=== PATIENT | male | born 1940 | race Caucasian/White ===

== ENCOUNTER 2024-05-24 20:07 | Inpatient (IN) | payer MEDICARE, BC, SELFPAY ==
[2024-05-24 15:47] VITALS: BP 130/72
[2024-05-24 16:10] LABS: % Basophils 0.7 % (0-2); % Eosinophils 5.2 % (0-6); % Immature Granulocytes 0.7 % (0-0.5); % Lymphocytes 12.4 % (20.5-51.1); Absolute Basophils 0.1 10^3/uL (0-0.2); Absolute Eosinophils 0.7 10^3/uL (0-0.7); Absolute Immature Granulocytes 0.1 10^3/uL (0-0.05); Absolute Lymphocytes 1.7 10^3/uL (1.2-3.4); Absolute Monocytes 1.1 10^3/uL (0.1-0.6); Hematocrit 33.4 % (39.0-52.0); Hemoglobin 10.9 g/dL (13.0-18.0); Mean Corp Hgb Conc. 32.6 g/dL (33.0-37.0); Mean Corpuscular Hgb 29.9 pg (27.0-31.0); Mean Corpuscular Volume 91.5 fL (80.0-94.0); Nucleated Red Blood Cells % 0 % (-); Platelet Count 245 10^3/uL (130-400); Red Blood Cell Count 3.65 10^6/uL (4.70-6.10); Red Cell Dist. Width 14.6 % (11.5-14.5); White Blood Cell Count 13.8 10^3/uL (4.8-10.8)
[2024-05-24 16:27] LABS: ALT (SGPT) 29 U/L (0-50); AST (SGOT) 37 U/L (17-59); Albumin 4.3 g/dl (3.5-5.0); Alkaline Phosphatase 66 U/L (38-126); Blood Urea Nitrogen 47 mg/dl (9-20); Calcium 9.8 mg/dl (8.4-10.2); Carbon Dioxide 26 mmol/L (22-30); Chloride 102 mmol/L (98-107); Glucose 118 mg/dl (70-99); Potassium 3.3 mmol/L (3.5-5.1); Sodium 140 mmol/L (135-145); Total Bilirubin 0.9 mg/dl (0.2-1.3); Total Protein 6.4 g/dl (6.3-8.2); eGFR 20.43
[2024-05-24 16:38] LABS: NT-proBNP 4010 pg/ml; Troponin I 0.015 ng/ml
[2024-05-24 18:16] VITALS: BP 159/85
--- NOTE | 2024-05-24 18:24 | ED.GENMED ---
History of Present Illness
General
Chief Complaint: Breathing Problem
Time Seen by Provider: 05/24/24 18:13
History of Present Illness
History of Present Illness:
84-year-old male presents to the emergency department for evaluation of exertional shortness of breath and recent 8 pound weight gain over the past 2 weeks. No chest pain with exertion. No prior cardiac history. Increased lower leg edema. Denies
any orthopnea. No fevers, chills, sweats, or coughing
Past History
Past History
ED Past Medical History: HTN and Hypercholesterolemia
ED Past Surgical History: Cholecystectomy and Urological
Social History
Tobacco: Non-smoker
Alcohol: Occasional
Drug: None
Personal:
Living: with family
Employment: Retired
Family History
Family History: Hypertension
Review of Systems
Review of Systems
Allergies reviewed?: Yes
All Other Systems: ROS reviewed and negative except as documented in HPI and ROS
Phy Exam
Physical Exam
Physical Exam:
GEN: Well appearing, NAD, WDWN
HEENT: Oral mucosa moist, no scleral icterus
Cardiac: Regular rate, irregular
Lung: No respiratory distress, no tachypnea, fine crackles heard at the bases
MSK: No gross deformity or injuries, 3+ pitting edema bilateral lower extremity
Skin: Good color, no pallor or jaundice, no rashes
Neuro: AO x3, moves all extremities freely
Psych: Calm, cooperative
Scores
Heart Failure Risk
Heart Failure Risk Score: Yes
History of Stroke or TIA: No
History of intubation for respiratory distress: No
Heart rate on ED arrival >/= 110: No
SaO2 <90% on arrival on room air: No
HR >/=110 during 3min walk test (or too ill to perform test): No
ECG has acute ischemic changes: No
Urea >/=12mmol/L (BUN 33.6mg/dL): Yes
Serum CO2>/=35mmol/L: No
Troponin I or T elevated to DC Level (0.4mg/dL): No
NT-proBNP >/=5,000ng/L (5,000pg/ml): No
HF Risk Score: 1
Admission Status: MEDIUM RISK 5.1% Consider observation or discharge to home with homecare & f/u visit to PCP/[facility], or SNF for treatment
Course
Orders/Labs/Results
Orders:
Orders
05/24/24 Dinner
Cholesterol Lowering
At Your Request: Limited Participation
Fluid Restriction: 1440 mL/day (48 oz)
Cholesterol Lowering: Sodium, 2 Gram
05/24/24 15:37
Electrocardiogram (*1) Urgent
Reason for Study: Shortness of Breath
05/24/24 15:38
EKG- Treatment ONCE
05/24/24 15:51
Electrocardiogram (*1) Urgent
Reason for Study: Shortness of Breath
EKG- Treatment ONCE
CR Chest - 2 Views Urgent
Comment:
Reason For Exam: SOB
05/24/24 15:55
Complete Blood Count/With Diff Urgent
Comprehensive Metabolic Panel Urgent
Ferritin Urgent
Comment: ADD ON
Folate Urgent
Comment: ADD ON
Iron Urgent
Comment: ADD ON
NT-proBNP Urgent
TSH Reflex To Free T4 Urgent
Comment: ADDON
Total Iron Binding Urgent
Comment: ADD ON
Troponin I Urgent
Vitamin B12 Urgent
Comment: ADD ON
05/24/24 18:23
Furosemide [Lasix] 20 mg IV NOW STA
Potassium Chloride [KCl] 40 meq PO NOW STA
Nursing to Place Non Medication Order As Directed
Physician Order: PTT 6 hours after initial start of Heparin infusion
Above order entered?: Yes
05/24/24 18:27
Heparin 4,000 units IV NOW STA
Nursing to Place Non Medication Order As Directed
Physician Order: PTT 6 hours after initial start of Heparin infusion
Above order entered?: Yes
05/24/24 18:29
PTT Urgent
Comment: Obtain baseline before beginning heparin infusion if not already collected
05/24/24 18:30
Heparin 03937 Units/250 ml 25,000 units in 250 ml IV PER PROTOCOL
Weight to be used for heparin protocol in kilograms (kg):: 97
Protocol:: Cardiac Tx/Acute Coronary
PTT Goal Range to be used:: PTT 73 to 111 seconds
Order type:: Initial
INITIAL Infusion Dose (UNITS/KG/hr) & then follow protocol:: 12 units/kg/hr
Infusion Dose in UNITS/hr & then follow protocol (UNITS/hr):: 1,000
INFUSION RATE in mL/hr & then follow protocol (mL/hr):: 10
PTT less than or equal to 64 seconds:: Increase rate by 200 units/hr (+ 2 mL/hr)
PTT 64.1 to 72.9 seconds:: Increase rate by 100 units/hr (+ 1 mL/hr)
PTT 73 to 111 seconds:: Target Range. No change in rate.
PTT 111.1 to 130.9 seconds:: Decrease rate by 100 units/hr (- 1 mL/hr)
PTT 131 to 199.9 seconds:: HOLD for 1 hr. Then decrease rate by 200 units/hr (- 2 mL/hr)
PTT greater than or equal to 200 seconds:: HOLD for 2 hrs & Notify Provider. Then decrease by 200 units/hr (-
2 mL/hr)
Lab follow-up:: Each change, PTT q6h until 2 consecutive are therapeutic. Then PTT
daily.
05/24/24 18:35
Potassium Chloride [KCl] 20 meq 0.9% Sodium Chloride 150 ml [Nss] 150 ml IV NOW
05/24/24 19:23
Add On- LAB Urgent
Tests Added?: tsh with free t4 reflex
05/24/24 19:45
Admit/Transfer Patient As Directed
Co-Sign Provider:
Level of Care: Inpatient admission
Assign to:: Telemetry
Physician / Group: jimmy vu
Diagnosis: new onset afib, acute Chf, hypoK, anemia
Reason for Telemetry: Arrhythmia
Date to Stop Telemetry: 05/27/24
Time to Stop Telemetry: 11:00
Reason for Hospitalization: new onset afib, acute Chf, hypoK, anemia
Expected length of stay greater than two midnights?: Yes
ELOS- Estimated Length of Stay in days: 4
I certify the patient meets the requirements for IP care: Yes
Code Status As Directed
Resuscitation Status: Do not resuscitate
Reached after discussion with pt or family/Healthcare POA: Yes
Based on pt advanced directive or healthcare POA form: Yes
Decision communicated with: per pt
05/24/24 19:46
DNR Bracelet Application ONCE
05/24/24 19:49
PRN Pain Medication Management As Directed
May give lesser potent ordered pain med per pt: Yes
preference::
Protocol:: Medication orders for pain may be administered in a
manner that supports deferring to patient preference
when the pt is:
- Requesting an ordered lesser potent pain medication.
Least to most potent pain medications are defined
as: acetaminophen < NSAID < tramadol < opioids
(morphine, oxycodone, hydromorphone).
- Requesting a lesser dose of the same medication IF
ORDERED.
- Requesting a less intrusive route of administration
if both routes are prescribed by the provider (PO <
IV).
05/24/24 19:53
Add On- LAB Urgent
Tests Added?: iron, tibc, ferritin, b12 folate
05/24/24 20:04
Consult Cardiology [CARDIOLOGY CONSULT] Urgent
Consulting Provider: Baldev Mtz
Was physician already notified: Yes
Reason for consult: new chf new afib
05/24/24 22:00
Acetaminophen [Tylenol] 650 mg PO Q4HPRN PRN
Atorvastatin [Lipitor] 10 mg PO HS
Carvedilol [Coreg] 25 mg PO BID
05/24/24 22:00
Heparin Protocol- PTT Orders As Directed
PTT per Heparin protocol: -Obtain CBC and baseline PTT - if not already collected.
-Obtain PTT 6 hours from start of infusion. Then, every 6 hours until 2 consecutive
PTT's are therapeutic. Then, PTT Daily.
-With each rate change, obtain PTT every 6 hours until 2 consecutive PTT's are
therapeutic. Then, PTT Daily.
Activity As Directed
Activity Level: As Tolerated
Intake/ Output As Directed
Frequency: Per unit guidelines
Notify MD As Directed
Notify physician if: PTT is greater than or equal to 200.
Vital Signs As Directed
Frequency: Per unit guidelines
Weight As Directed
Frequency: Daily
Pulse Ox/spot Check [RESP] Routine
Quantity: 1
Ot Eval And Treat Routine
Pt Eval And Treat Routine
Activity Level: As Tolerated
05/25/24 00:45
PTT Urgent
05/25/24 06:00
EKG [Electrocardiogram (*1)] IN AM
Reason for Study: Abnormal EKG
Echo 2D MMode Color/Doppler IN AM
Reason for Study: afib
Cardiovascular Evaluation IN AM
Complete Blood Count/With Diff IN AM
Comprehensive Metabolic Panel IN AM
TSH Reflex To Free T4 IN AM
05/25/24 08:00
Allopurinol [Zyloprim] 300 mg PO DAILY
05/26/24 06:00
Complete Blood Count/No Diff Q2D
Comment: notify provider: Platelet count < 130,000 or decrease by 50% from baseline
Complete Blood Count/With Diff IN AM
Comprehensive Metabolic Panel IN AM
05/27/24 06:00
Complete Blood Count/With Diff IN AM
Comprehensive Metabolic Panel IN AM
05/27/24 11:00
DC Protocol for Telemetry ONCE
05/28/24 06:00
Complete Blood Count/No Diff Q2D
Comment: notify provider: Platelet count < 130,000 or decrease by 50% from baseline
Complete Blood Count/With Diff IN AM
Comprehensive Metabolic Panel IN AM
05/30/24 06:00
Complete Blood Count/No Diff Q2D
Comment: notify provider: Platelet count < 130,000 or decrease by 50% from baseline
06/01/24 06:00
Complete Blood Count/No Diff Q2D
Comment: notify provider: Platelet count < 130,000 or decrease by 50% from baseline
06/03/24 06:00
Complete Blood Count/No Diff Q2D
Comment: notify provider: Platelet count < 130,000 or decrease by 50% from baseline
06/05/24 06:00
Complete Blood Count/No Diff Q2D
Comment: notify provider: Platelet count < 130,000 or decrease by 50% from baseline
06/07/24 06:00
Complete Blood Count/No Diff Q2D
Comment: notify provider: Platelet count < 130,000 or decrease by 50% from baseline
06/09/24 06:00
Complete Blood Count/No Diff Q2D
Comment: notify provider: Platelet count < 130,000 or decrease by 50% from baseline
Abnormal Lab Results
05/24/24
15:55
WBC 13.8 H 10^3/uL
(4.8-10.8)
RBC 3.65 L 10^6/uL
(4.70-6.10)
Hgb 10.9 L g/dL
(13.0-18.0)
Hct 33.4 L %
(39.0-52.0)
MCHC 32.6 L g/dL
(33.0-37.0)
RDW 14.6 H %
(11.5-14.5)
MPV 11.0 H fL
(7.4-10.4)
Abs Immat Gran (auto) 0.1 H 10^3/uL
(0-0.05)
Absolute Neuts (auto) 10.0 H 10^3/uL
(1.4-6.5)
Absolute Monos (auto) 1.1 H 10^3/uL
(0.1-0.6)
Immature Gran % 0.7 H %
(0-0.5)
Lymphocytes % 12.4 L %
(20.5-51.1)
Potassium 3.3 L mmol/L
(3.5-5.1)
BUN 47 H mg/dl
(9-20)
Creatinine 2.9 H mg/dL
(0.7-1.3)
Glucose 118 H mg/dl
(70-99)
% Saturation 17 L %
(20-50)
Folate > 20.0 H ng/ml
(2.76-20)
05/24/24 15:55
05/24/24 15:55
Vital Signs
Initial and Last Documented VS:
Initial Vital Signs
Temp Pulse Resp BP Pulse Ox
97.5 F 96 18 130/72 95
05/24/24 15:47 05/24/24 15:47 05/24/24 15:47 05/24/24 15:47 05/24/24 15:47
Last Documented Vital Signs
Temp Pulse Resp BP Pulse Ox
98.0 F 91 16 140/73 97
05/24/24 23:39 05/24/24 23:39 05/24/24 23:39 05/24/24 23:39 05/24/24 23:39
MDM/Problems Addressed
MDM/Problems Addressed:
Patient with new onset CHF which may be in part due to newly identified atrial fibrillation. He is certainly not a cardioversion candidate and is rate controlled at this time. Placed on heparin, diuresis initiated and potassium repletion given IV
and orally. Will admit to the hospitalist service
Comment
Comment:
EKG independently interpreted by me shows atrial fibrillation at a rate of [address] depressions
*Critical Care Note
Total Time (30-74mins, 75-104mins- exclusive of procedures): Not Applicable
ED Attending Note
-
Portions of this chart may have been created with voice recognition software.� Occasional wrong word or��sound alike� substitutions may have occurred due to the inherent limitations of voice recognition software.
Discharge Plan
Departure
Patient Disposition: Admit
Date of Disposition: 05/24/24
Time of Disposition: 18:26
Admit to: Telemetry
Presentation/result/management discussed w/ accepting MD/DO: Hospitalist
Discharge Problem:
Atrial fibrillation, new onset, New onset of congestive heart failure
Interventions
Interventions:
*Risk Screen - Suicide Last Done: 05/24/24 18:30
*General Assessment Last Done: 05/24/24 15:47
*Neglect/Abuse Screening Last Done: 05/24/24 18:30
*ED COVID-19 Vaccine History Last Done: 05/24/24 18:30
*Nursing Disposition Last Done: 05/24/24 22:23
ED- Cardiac Assessment Last Done: 05/24/24 18:46
ED- Pulmonary Assessment Last Done: 05/24/24 18:46
Discharge Date and Time
Discharge Date/Time: 05/24/24 22:24
[2024-05-24 18:26] VITALS: BMI 29.8
[2024-05-24] MEDS: LASIX 20 MG IV (18:36)
[2024-05-24] MEDS: KCL 40 MEQ PO (18:38)
[2024-05-24] MEDS: HEPARIN 4000 UNITS IV (18:38)
[2024-05-24] MEDS: HEPARIN 25000 UNITS/250 ML IV (18:42)
[2024-05-24 18:54] LABS: APTT 31.6 Sec (23.4-35.0)
[2024-05-24 19:00] VITALS: BP 141/62
--- NOTE | 2024-05-24 19:01 | HPS.HSE ---
Addendum entered and electronically signed by ENRICO Boateng 05/24/24 22:40:
Gout
Due to pt's CKD4 Gout proph Allopurinol based on pt's CRCL should be 100 mg daily not 300 mg daily
tHis was discussed with Pharmacy
Addendum entered and electronically signed by Adilson Herndon DO 05/24/24 20:56:
Patient seen and examined independently. Agree with findings and plan as set forth by ENRICO Boateng.
Patient is an 84y M with PMH significant for hypertension and CKD who presents to ED complaining of SOB, weight gain and edema. Patient has no prior history of known heart disease. He states that he developed some chest tightness and shortness
of breath while shoveling snow a few weeks ago. Since that time, he has experienced increased SNYDER, edema in the legs - gradually increasing to the thighs - and 8 pound weight gain.
He presents to the ED for further evaluation and treatment.
No fever / chills, cough, etc. No chest pain at present.
Ass:
Acute HF - Unknown Type
Atrial Fibrillation - New Onset
MAITE on CKD
Hypokalemia
Anemia of CKD
Benign Hypertension
Gout
Chronic Leukocytosis
Plan:
Admit for further evaluation and treatment.
Concern for new ischemia several weeks ago and now with new cardiac dysfunction.
Monitor on telemetry - A-Fib currently rate-controlled.
Continue current carvedilol.
IV Heparin infusion for stroke risk reduction.
IV Lasix and follow I/Os, daily weights, etc.
Follow for changes / improvement in renal function with diuresis.
Follow potassium and provide additional replacement if needed.
Discontinue amlodipine and HCT for now.
Echo.
Cardiology evaluation for additional recommendations.
Follow for clinical improvement.
Original Note:
Family Physician
-
Family Physician: Nicanor Linton
Chief Complaint
-
Leg edema weight gain, SNYDER
History of Present Illness
84-year-old male complaining of dyspnea on exertion with 8 pound weight gain over the past 2 weeks and lower extremity edema. He reports noticing dyspnea on exertion after shoveling snow a few weeks ago. He denies fever, chills, sore throat, chest
pain, palpitations, abdominal pain, nausea, vomiting, diarrhea, urinary symptoms. He has past medical history of hypertension, hyperlipidemia, rib fracture/pleural effusion/chest tube, colon polyps with tubular adenoma, chronic renal failure,
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
Medical History
Past Medical History
Past Medical History: Reports Other
Additional Past Medical History:
hypertension
hyperlipidemia
rib fracture/pleural effusion/chest tube
colon polyps with tubular adenoma
chronic renal failure
prostate cancer status post prostatectomy 1994
arthritis
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
gout
impaired vision
CKD 4A
chronic leukocytosis.
Past Surgical History: Reports Other
Additional Past Surgical History:
rib fracture/pleural effusion/chest tube
prostate cancer status post prostatectomy 1994
Left knee replacement
Social History
Tobacco: Non-smoker
Alcohol: Occasional (every few months)
Drug: None
Personal:
Living: With Family ()
Employment: Retired
Family History
Family History: Other (Mother CVA age 83 Father CVA age 66)
Allergies / Home Medications
Allergies reflects when Allergies were last updated in [facility].
Home Medications with original date entered in [facility]
Allergy/Medication List:
Allergies
Allergy/AdvReac Type Severity Reaction Status Date / Time
Penicillins Allergy Rash,fever Verified 05/24/24 15:47
Sulfa (Sulfonamide Allergy Rash,fever Verified 05/24/24 15:47
Antibiotics)
[Sulfa (Sulfonamides)]
Home Medications
atorvastatin 10 mg tablet 10 mg PO HS 04/07/15
carvedilol 25 mg tablet (Coreg) 25 mg PO BID 04/07/15
aspirin 325 mg tablet 325 mg PO DAILY 03/31/16
amlodipine 10 mg tablet (Norvasc) 10 mg PO DAILY 05/16/17
hydrochlorothiazide 25 mg tablet 25 mg PO DAILY 05/16/17
zuieftpn-cee-wpiet acid 0.4 mg-lycopene 300 mcg-lutein 250 mcg tablet (Centrum Silver) 1 ea PO DAILY 05/16/17
omega 3-lmp-nzs-fish oil 300 mg-1,000 mg capsule (Fish Oil) 1 ea PO BID 05/16/17
allopurinol 300 mg tablet 300 mg PO DAILY 06/09/17
acetaminophen 325 mg tablet (Tylenol) 650 mg PO Q6HPRN PRN mild pain 05/24/24
Review of Systems
-
History Source: Patient
A 12 point ROS was completed and negative except as noted: Yes
Constitutional: Reports Weight Gain; Denies Fever, Fatigue or Chills
EENT: Denies Sore Throat or Runny Nose
Respiratory: Reports Trouble Breathing (snyder when shoveling snow weeks ago); Denies Cough
Cardiac: Denies Chest Pain, Diaphoresis, Palpitations or Syncope
Abdomen/GI: Denies Abdominal Pain, Nausea, Vomiting, Diarrhea, Constipated, Bloody Stools or Black Stools
: Denies Dysuria, Frequency, Flank Pain, Incontinence, Difficulty Voiding or Urgency
Musculoskeletal: Reports Edema (+ legs to thighs ); Denies Joint Pain
Skin: Denies Itching or Rash
Neurological: Denies Dizzy, Headache or Weakness
Endocrine: Reports No Symptoms
Hematologic/Lymphatic: Reports No Symptoms
Psych: Reports Calm
Physical Exam
Vital Signs
Vital Signs
Temp Pulse Resp BP Pulse Ox
97.5 F 67 16 159/85 93
05/24/24 15:47 05/24/24 18:36 05/24/24 18:17 05/24/24 18:36 05/24/24 18:17
Physical Exam
General: Comfortable and Conversant; No Pain, Fever or Chills
HEENT: NormoCephalic, Anicteric, Moist mucous membranes, PERRLA, Quintana Conjunctivae and No Ptosis
Respiratory: Clear; No Wheezes, Rales or Rhonchi
Cardiac: S1/S2, Irregular Rhythm (afib controlled rate 63) and Peripheral Edema (+2 lower legs to upper thighs); No Murmur, Rub or Gallop
Breast: Deferred by me
GI: Soft, Non Tender, Non Distended, Normal Bowel Sounds and No Hepatosplenomegaly
Rectal: Deferred by Provider
Genito-urinary: Deferred by me
Musculoskeletal: No Clubbing, No Cyanosis, Edema, Left Lower Extremity (+2 lower legs to thighs) and Edema, Right Lower Extremity (+2 lower legs to thighs); No Edema, Left Upper Extremity or Edema, Right Upper Extremity
Skin: Warm and Dry; No Rash
Neuro: AO x 3, No Motor Deficits, Nonfocal/grossly intact, Cranial Nerves Intact and No Sensory Deficits; No Slurred Speech, Facial Droop, Tremors or Sedated
Psych: Calm
Laboratory Results
-
05/24/24 15:55
05/24/24 15:55
Laboratory Results
Total Bilirubin 0.9 mg/dl (0.2-1.3) 05/24/24 15:55
AST 37 U/L (17-59) 05/24/24 15:55
ALT 29 U/L (0-50) 05/24/24 15:55
Alkaline Phosphatase 66 U/L (38-126) 05/24/24 15:55
Troponin I 0.015 ng/ml 05/24/24 15:55
Data Reviewed
-
Lab Data: Labs Reviewed by me
Impression/Plan
-
Impression/plan:
Admit to TELE
#New onset A-fib
Currently rate controlled with patient's carvedilol 25 mg p.o. twice daily
-Heparin drip
-2D echo
-Consult [facility] cardiology
03/31/2016: EF 55 to 60%, mild TR normal LVS LVSF
#Acute CHF likely diastolic
I/O, daily weight
BNP 4010
Lasix 20 mg IV now
-Start Lasix 40 mg Bid
EKG A-fib heart rate 78 bpm, QTc [address] abnormality lateral leads
CXR:Right perihilar airspace opacity most suspicious for pneumonia. Recommend radiographic follow-up to resolution.
Trace bilateral pleural fluid. Slight prominence of the pulmonary vascular markings. No pneumothorax. The cardiac silhouette is enlarged. Chronic degenerative changes of the spine.
#Acute hypokalemia
K3.3
-KCl 40 mEq p.o. given in the ER, along with IV K rider 20 mEq
-Will check BMP in a.m. hold on any further potassium supplementation
#CKD stage Humza
Creat 2.9, prior baseline appears 1.4-1.8 ()
-Follow BMP
#Acute on chronic leukocytosis
WBC 13.8 appears less than baseline baseline appears 16-20 since 2015
-Follow CBC
#Chronic anemia normocytic
Hgb 10.9 prior 12.8 03/24/2020
-Check iron panel, B12, folate
#HTN�benign
-Hold HCTZ 25 mg daily, amlodipine 10 mg daily decrease aspirin to 81 mg daily
#HLD
-Check lipid profile
-Continue atorvastatin 10 mg at bedtime
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
-Check TSH with free T4 reflex
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
#Gout
-Continue allopurinol 300 mg daily
#Prostate cancer status post radical prostatectomy 1994
Other PMH:
Rib fracture/pleural effusion/chest tube
colon polyps with tubular adenoma
DVT prophylaxis
IV heparin drip
DNR per patient
[2024-05-24] MEDS: KCL 160 MEQ IV (19:21)
[2024-05-24 20:00] VITALS: BP 145/70
[2024-05-24 20:09] LABS: Iron 56 ug/dl (49-181)
[2024-05-24 20:19] LABS: Percent Saturation 17 % (20-50); Total Iron Binding Capacity 316 ug/dl (261-462)
[2024-05-24 20:46] LABS: Ferritin 33.4 ng/ml (17.9-464.0)
[2024-05-24 21:18] LABS: Folate > 20.0 ng/ml (2.76-20)
[2024-05-24 22:11] VITALS: BP 141/70; BMI 33.5
[2024-05-24] MEDS: LIPITOR 10 MG PO (23:02)
[2024-05-24] MEDS: COREG 25 MG PO (23:02)
[2024-05-24 23:18] VITALS: BMI 33.5
[2024-05-24 23:39] VITALS: BP 140/73
[2024-05-25] VITALS (7 sets, daily range): BP systolic 112–144; BP diastolic 54–69; PULSE 73–81; O2SAT 90–91; BMI 33.0
--- NOTE | 2024-05-25 00:28 | PTCARENOTE ---
Receive pt from ER. Pt alert oriented X3, calm and pleasant, in no resp distress. Pt denies chest pain, but mild dyspnea on exertion. Pt assist X1 to his bed, steady on his feet. Pt oriented to the room, call dueñas within reach. Pt on Afib on
telemonitor. VSS (T=98, HR=94, RR=20, MO=051/70, SpO2=93% on RA). CHF and Afib packets provided. Plan of care reviewed with the pt. Pt on Hep gtt. Will continue to monitor the pt.
[2024-05-25 01:43] LABS: APTT 53.2 Sec (23.4-35.0)
[2024-05-25 04:07] LABS: Vitamin B12 802 pg/ml (239-931)
[2024-05-25 08:33] LABS: % Eosinophils 4.6 % (0-6); % Immature Granulocytes 0.8 % (0-0.5); % Monocytes 7.6 % (1.7-9.3); Absolute Basophils 0.1 10^3/uL (0-0.2); Absolute Eosinophils 0.6 10^3/uL (0-0.7); Absolute Immature Granulocytes 0.1 10^3/uL (0-0.05); Absolute Lymphocytes 1.7 10^3/uL (1.2-3.4); Absolute Monocytes 0.9 10^3/uL (0.1-0.6); Absolute Neutrophils 8.7 10^3/uL (1.4-6.5); Hematocrit 30.5 % (39.0-52.0); Hemoglobin 10.1 g/dL (13.0-18.0); Mean Corp Hgb Conc. 33.1 g/dL (33.0-37.0); Mean Corpuscular Hgb 30.1 pg (27.0-31.0); Mean Corpuscular Volume 90.8 fL (80.0-94.0); Mean Platelet Volume 11.1 fL (7.4-10.4); Nucleated Red Blood Cells % 0 % (-); Platelet Count 219 10^3/uL (130-400); Red Blood Cell Count 3.36 10^6/uL (4.70-6.10); Red Cell Dist. Width 14.6 % (11.5-14.5); White Blood Cell Count 12.1 10^3/uL (4.8-10.8)
[2024-05-25 08:41] LABS: APTT 62.5 Sec (23.4-35.0)
[2024-05-25 08:51] LABS: ALT (SGPT) 26 U/L (0-50); AST (SGOT) 35 U/L (17-59); Albumin 3.9 g/dl (3.5-5.0); Alkaline Phosphatase 69 U/L (38-126); Blood Urea Nitrogen 43 mg/dl (9-20); Calcium 9.8 mg/dl (8.4-10.2); Carbon Dioxide 26 mmol/L (22-30); Chloride 106 mmol/L (98-107); Estimated Creatinine Clearance 20 ml/min; Glucose 101 mg/dl (70-99); HDL Cholesterol 29 mg/dl; LDL Cholesterol, Calculated 57 mg/dl; Potassium 3.1 mmol/L (3.5-5.1); Sodium 141 mmol/L (135-145); Total Cholesterol 104 mg/dl (50-199); Total Protein 5.7 g/dl (6.3-8.2); Triglyceride 92 mg/dl (10-149); Very Low Density Lipoprotein 18 mg/dl (0-30); eGFR 21.31
[2024-05-25] MEDS: THERAGRAN 1 TABLET PO (08:58)
[2024-05-25] MEDS: COREG 25 MG PO ×2 (08:58→20:08)
[2024-05-25] MEDS: ZYLOPRIM 100 MG PO (08:58)
[2024-05-25 09:21] LABS: TSH Reflex To Free T4 2.04 uIU/ml (0.47-4.68)
--- NOTE | 2024-05-25 09:35 | CON.CAR ---
Addendum entered and electronically signed by Elias Haynes MD 05/25/24 11:12:
Patient is seen and evaluated personally. I agree with the note, documentation and plan of care as noted below.
Briefly, 84 years old gentleman with acute on chronic heart failure and newly discovered atrial fibrillation, CKD, hypertension who is rate controlled. Patient is started on heparin drip for stroke prevention. Patient has [id number] score of 4
and needs chronic anticoagulation therapy. Currently on heparin. We will switch heparin to Eliquis with appropriate dosing for him is 2.5 mg twice a day for age and CKD.
Continue Coreg for rate control at this time.
Echo on Monday.
Continue diuresis for heart failure.
Original Note:
Consultation
Consultation Request
Date/Time Consultation Requested: 05/24/242003
Date/Time Consultation Performed: 05/25/24929
Requesting Provider: Kaila Lynn
Performing Provider: Juju WESTON for Dr. Haynes
Reason for Consultation: AFIB, CHF
Medical History
-
Chief Complaint: SOB
History of Present Illness:
84 y/o male with CKD, hypertension, dyslipidemia, and prostate CA who is here for evaluation of DOTSON for about 2 weeks (which started after shoveling snow). He denies any CP. There has been 7 lb weight gain and LE edema as well. He is in no distress
at the time of my assessment. He is seen to have rate-controlled AFIB, which is new diagnosis.
Past Medical History
Past Medical History: Cancer, HTN, Hypercholesterolemia and Other (as above)
Past Surgical History: Orthopedic
Social History
Tobacco: Non-Smoker
Family History
Family History: Reviewed & Not Pertinent
Allergies / Home Medications
Allergy/AdvReac Type Severity Reaction Status Date / Time
Penicillins Allergy Rash,fever Verified 05/24/24 15:47
Sulfa (Sulfonamide Allergy Rash,fever Verified 05/24/24 15:47
Antibiotics)
[Sulfa (Sulfonamides)]
�Medication �Instructions �Recorded �Confirmed �Type
atorvastatin 10 mg tablet 10 mg PO HS 04/07/15 05/24/24 History
carvedilol 25 mg tablet (Coreg) 25 mg PO BID 04/07/15 05/24/24 History
aspirin 325 mg tablet 325 mg PO DAILY 03/31/16 05/24/24 History
amlodipine 10 mg tablet (Norvasc) 10 mg PO DAILY 05/16/17 05/24/24 History
hydrochlorothiazide 25 mg tablet 25 mg PO DAILY 05/16/17 05/24/24 History
lrulvnxf-ntv-bwqju acid 0.4 1 ea PO DAILY 05/16/17 05/24/24 History
mg-lycopene 300 mcg-lutein 250 mcg
tablet (Centrum Silver)
omega 6-qhd-yvd-fish oil 300 1 ea PO BID 05/16/17 05/24/24 History
mg-1,000 mg capsule (Fish Oil)
allopurinol 300 mg tablet 300 mg PO DAILY 06/09/17 05/24/24 Rx
acetaminophen 325 mg tablet 650 mg PO Q6HPRN PRN mild pain 05/24/24 05/24/24 History
(Tylenol)
Review of Systems
-
History Source: Patient
All other systems: Negative unless noted
Constitutional: Weight Gain
Respiratory: Trouble Breathing
Musculoskeletal: Edema
Physical Exam
Vital Signs
Temp Pulse Resp BP Pulse Ox
98.9 F 79 16 136/56 95
05/25/24 07:35 05/25/24 07:35 05/25/24 07:35 05/25/24 07:35 05/25/24 07:35
Lab Results
05/25/24 07:51
05/25/24 07:51
Troponin I 0.015 ng/ml 05/24/24 15:55
Psa-Z-Bxuecubnasz Pept 4010 pg/ml 05/24/24 15:55
Physical Exam
General: Well Developed, Well Nourished and No Apparent Distress
HEENT: Normocephalic and Anicteric
Respiratory: Crackles (b/l bases) and Non Labored Respirations
Cardiac: Irregular Rhythm
Musculoskeletal: Edema (mild-moderate BLE edema)
Skin: Warm and Dry
Neuro: AO x 3
Psych: Calm
Impression / Plan
-
AFIB, new diagnosis, type and onset unknown:
-rate-controlled. Continue Coreg and telemetry.
-[id number] score is 4 for age, HTN, CHF. Transition from heparin to Eliquis at tonight's dose. Dose is 2.5 mg PO BID based on kidney function and age. Consult CM for pricing. He is on full dose ASA as OP, this can be stopped now on Eliquis.
-TSH WNL
Acute HF, type unknown:
-agree with IV diuresis, which requires intensive monitoring. Hypokalemia is noted and needs to be replaced and monitored.
-echo Monday
CKD:
-monitor with diuresis
HTN:
-monitor with diuresis
-HCTZ stopped
Data Reviewed
-
EKG: Tracing Personally Visualized and interpreted (AFIB 78 BPM, nonspecific ST/T abnormalities)
Radiology: Report Reviewed by me (CXR: Right perihilar airspace opacity most suspicious for pneumonia. Recommend radiographic follow-up to resolution. Trace bilateral pleural fluid. Slight prominence of the pulmonary vascular markings. No
pneumothorax. The cardiac silhouette is enlarged. Chronic degenerative changes of the spine.)
Medical Tests (Nuc Med, Echo etc): Report Reviewed by me (Echo 04/04/16: Normal left ventricular size, wall thickness and systolic function. Estimated ejection fraction is 55-60%. Mild tricuspid regurgitation.)
Labs: Labs Reviewed by me
[2024-05-25] MEDS: KCL 40 MEQ PO (10:43)
--- NOTE | 2024-05-25 12:08 | W.PN.HOSP.TC ---
Today's Communication/Plan
-
KCl supplement
recheck CXR
Assessment / Plan
Assessment / Plan
#New onset A-fib
Currently rate controlled with patient's carvedilol 25 mg p.o. twice daily
-Heparin drip to transition to Eliquis later today
-2D echo
-Consulted [facility], input appreciated
03/31/2016: EF 55 to 60%, mild TR normal LVS LVSF
#Acute CHF likely diastolic
I/O, daily weight
BNP 4010
Lasix 20 mg IV now
-Start Lasix 40 mg Bid
Wt 97-->94-->92.7 kg
EKG A-fib heart rate 78 bpm, QTc [address] abnormality lateral leads
CXR:Right perihilar airspace opacity most suspicious for pneumonia. Recommend radiographic follow-up to resolution.
Trace bilateral pleural fluid. Slight prominence of the pulmonary vascular markings. No pneumothorax. The cardiac silhouette is enlarged. Chronic degenerative changes of the spine.#Acute hypokalemia
K3.3-->3.1
-KCl 40 mEq p.o. given in the ER, along with IV K rider 20 mEq
-will give additional K
CXR with concern for PNA. Not started on abx, no fever, WBC appears at baseline.
will order repeat CXR, with excellent diuresis, to see if any change
#CKD stage Humza
Creat 2.9, prior baseline appears 1.4-1.8 ()
-Follow BMP
#Acute on chronic leukocytosis
WBC 13.8 appears less than baseline baseline appears 16-20 since 2015
-Follow CBC
#Chronic anemia normocytic
Hgb 10.9 prior 12.8 03/24/2020
-Check iron panel, B12, folate
#HTN�benign
-Hold HCTZ 25 mg daily, amlodipine 10 mg daily decrease aspirin to 81 mg daily
#HLD
-Check lipid profile
-Continue atorvastatin 10 mg at bedtime
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
-Check TSH with free T4 reflex
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
#Gout
-Continue allopurinol 300 mg daily
#Prostate cancer status post radical prostatectomy 1994
Other PMH:
Rib fracture/pleural effusion/chest tube
colon polyps with tubular adenoma
DVT prophylaxis
IV heparin drip
DNR per patient
Anticipated Discharge: > 48 hours
Subjective/Interval History
-
Date of Service: May 25, 2024
States he is already feeling better
Objective Data
-
Labs:
Laboratory Results
05/25/24 05/25/24 05/25/24
01:18 07:51 14:50
WBC 12.1 H
Hgb 10.1 L
Hct 30.5 L
Plt Count 219
APTT 53.2 H 62.5 H Pending
Sodium 141
Potassium 3.1 L
Chloride 106
Carbon Dioxide 26
BUN 43 H
Creatinine 2.8 H
Glucose 101 H
Calcium 9.8
Total Bilirubin 1.0
AST 35
ALT 26
Alkaline Phosphatase 69
Vital Signs:
Vital Signs
Temp Pulse Resp BP Pulse Ox
98.9 F 79 20 121/59 94
05/25/24 11:15 05/25/24 11:15 05/25/24 11:15 05/25/24 11:15 05/25/24 11:15
I&O
05/24/24 05/25/24 05/26/24
06:59 06:59 06:59
Intake Total 240 / 240 120 / 120
Output Total 1275 / 1275 220 / 220
Balance -1035 / -1035 -100 / -100
Review of Systems
-
History Source: Patient and Coordinated Provider
Constitutional: Denies Fever
EENT: Reports No Symptoms Reported
Respiratory: Denies Cough or Trouble Breathing
Cardiac: Denies Chest Pain
Abdomen/GI: Reports No Symptoms
Physical Exam
-
General: Well Developed, Well Nourished and No Apparent Distress
HEENT: Normocephalic, Atraumatic and Moist Mucous Membranes
Respiratory: Rales (minimal bibasilar rales)
Cardiac: S1/S2 and Irregular Rhythm
GI: Soft, Nontender and Nondistended
Musculoskeletal: Edema, Right Lower Extrem (1+) and Edema, Left Lower Extrem (1+)
[2024-05-25] MEDS: KCL 20 MEQ PO (15:29)
[2024-05-25] MEDS: LASIX 20 MG IV (15:31)
[2024-05-25 15:32] LABS: APTT 77.3 Sec (23.4-35.0)
[2024-05-25] MEDS: HEPARIN 25000 UNITS/250 ML IV (16:21)
--- NOTE | 2024-05-25 16:59 | CM ---
Addendum entered by Leisa Saxena RN 05/25/24 17:09:
Offered VN and patient declined at this time.
Original Note:
Patient with Dx new Afib, CHF, concern for PNA. Room air. Receiving IV Abx, IV Lasix, Heparin gtt.
Met with patient who resides with his in a 1 story house with 1 [address].
The patient was independent in ADLs and ambulation.
The patient has no DME.
No prior VN or SNF.
PCP - Nicanor Linton
Pharmacy - [facility]
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 Their daughter Annemarie is caring for his while he is here in the hospital.
CM Consult: Eliquis rhoades check 2.5mg BID
Spoke with pharmacist, [facility]; cost is #35/month.
Spoke with patient who agrees to EliquSi TV cost. Eliquis Free Month card provided to patient.
Message to Juju Vega patient ok with Eliquis cost.
No CM d/c needs identified at present.
Plan home.
[2024-05-25] MEDS: ZITHROMAX INFUSION 250 IV (17:29)
[2024-05-25] MEDS: ELIQUIS 2.5 MG PO (20:08)
[2024-05-25] MEDS: LIPITOR 10 MG PO (21:47)
[2024-05-26 03:43] VITALS: BP 116/69
[2024-05-26 06:00] VITALS: BMI 33.2
[2024-05-26 06:43] LABS: % Basophils 0.7 % (0-2); % Immature Granulocytes 0.9 % (0-0.5); % Lymphocytes 13.9 % (20.5-51.1); % Monocytes 8.4 % (1.7-9.3); % Neutrophils 72.1 % (42.2-75.2); Absolute Basophils 0.1 10^3/uL (0-0.2); Absolute Eosinophils 0.5 10^3/uL (0-0.7); Absolute Immature Granulocytes 0.1 10^3/uL (0-0.05); Absolute Lymphocytes 1.6 10^3/uL (1.2-3.4); Absolute Neutrophils 8.4 10^3/uL (1.4-6.5); Hematocrit 29.9 % (39.0-52.0); Hemoglobin 9.8 g/dL (13.0-18.0); Mean Corp Hgb Conc. 32.8 g/dL (33.0-37.0); Mean Corpuscular Volume 91.4 fL (80.0-94.0); Mean Platelet Volume 11.4 fL (7.4-10.4); Nucleated Red Blood Cells % 0 % (-); Platelet Count 203 10^3/uL (130-400); Red Blood Cell Count 3.27 10^6/uL (4.70-6.10); Red Cell Dist. Width 14.7 % (11.5-14.5); White Blood Cell Count 11.6 10^3/uL (4.8-10.8)
[2024-05-26 06:52] LABS: ALT (SGPT) 24 U/L (0-50); AST (SGOT) 33 U/L (17-59); Albumin 3.3 g/dl (3.5-5.0); Alkaline Phosphatase 59 U/L (38-126); Blood Urea Nitrogen 48 mg/dl (9-20); Calcium 9.6 mg/dl (8.4-10.2); Carbon Dioxide 30 mmol/L (22-30); Chloride 106 mmol/L (98-107); Estimated Creatinine Clearance 21 ml/min; Glucose 93 mg/dl (70-99); Potassium 3.4 mmol/L (3.5-5.1); Sodium 143 mmol/L (135-145); Total Bilirubin 0.7 mg/dl (0.2-1.3); Total Protein 5.6 g/dl (6.3-8.2); eGFR 22.26
[2024-05-26 07:20] VITALS: BP 126/58
[2024-05-26] MEDS: ELIQUIS 2.5 MG PO ×2 (09:40→20:17)
[2024-05-26] MEDS: ZYLOPRIM 100 MG PO (09:42)
[2024-05-26] MEDS: THERAGRAN 1 TABLET PO (09:42)
[2024-05-26] MEDS: COREG 25 MG PO ×2 (09:43→20:17)
--- NOTE | 2024-05-26 09:51 | W.PN.CD ---
Today's Communication / Plan
-
-Continue Coreg and Eliquis
-Continue IV Lasix today
Impression / Plan
-
AFIB, new diagnosis, type and onset unknown:
- rate-controlled. Continue Coreg and telemetry.
- [id number] score is 4 for age, HTN, CHF.
- Eliquis with appropriate dosing for him is 2.5 mg twice a day for age and CKD
- Consult CM for pricing. He is on full dose ASA as OP, this can be stopped now on Eliquis.
- TSH WNL
- ECHO 04/04/16: Nl - EF 60%
- Repeat ECHO in AM
Acute HF, type unknown:
-agree with IV diuresis, which requires intensive monitoring. Hypokalemia is noted and needs to be replaced and monitored.
-echo Monday
CKD:
-monitor with diuresis
HTN:
-monitor with diuresis
-HCTZ stopped
Physical Exam
Vital Signs/Labs
Vital Signs
Temp Pulse Resp BP Pulse Ox
97.7 F 89 18 126/58 95
05/26/24 07:20 05/26/24 09:43 05/26/24 07:20 05/26/24 09:43 05/26/24 07:20
05/25/24 05/26/24 05/27/24
06:59 06:59 06:59
Actual Weight 92.731 kg 93.242 kg
05/26/24 05:38
05/26/24 05:38
APTT 77.3 Sec (23.4-35.0) H 05/25/24 15:01
Triglycerides 92 mg/dl (10-149) 05/25/24 07:51
LDL Cholesterol, Calc 57 mg/dl 05/25/24 07:51
VLDL Cholesterol, Calc 18 mg/dl (0-30) 02/08/25 07:51
HDL Cholesterol 29 mg/dl 05/25/24 07:51
05/24/24
15:55
Umc-G-Cnxkeanbtbi Pept 4010
LAB Results
05/24/24
15:55
Troponin I 0.015
Physical Exam
Constitutional: No acute distress and Comfortable
EENT: Anicteric and Moist mucous membranes
Cardiovascular: Rhythm/rate is irregular, Pedal edema present, JVD present and Systolic murmur present
Respiratory: Respiratory effort normal, Crackles Absent and Rhonchi Absent
GI: Soft, Distention absent and Normal bowel sounds
Neuro/Psych: Alert, Oriented and AO x 3
Data Reviewed
-
Date of Service: May 26, 2024
Medical Decision Making: Reviewed Test Results, Test Interpretation and Review of Case with other Provider
EKG: Tracing Personally Visualized and interpreted
Echo: Report Reviewed by me
Labs: Labs Reviewed by me
[2024-05-26 11:54] VITALS: BP 127/59
[2024-05-26] MEDS: LASIX IV (12:41)
--- NOTE | 2024-05-26 13:48 | W.PN.HOSP.TC ---
Today's Communication/Plan
-
continue Azithromycin for now
Eliquis to continue
change Lasix to oral
Echo tomorrow
Assessment / Plan
Assessment / Plan
#New onset A-fib
Currently rate controlled with patient's carvedilol 25 mg p.o. twice daily
-Heparin drip transitioned to Eliquis
-2D echo Monday
-Consulted [facility], input appreciated
03/31/2016: EF 55 to 60%, mild TR normal LVS LVSF
#Acute CHF likely diastolic
I/O, daily weight
BNP 4010
Lasix 20 mg IV to hold today's dose and start on oral Lasix tomorrow
-Start Lasix 40 mg po daily
Wt 97-->94-->92.7-->93.2 kg
EKG A-fib heart rate 78 bpm, QTc [address] abnormality lateral leads
CXR:Right perihilar airspace opacity most suspicious for pneumonia. Recommend radiographic follow-up to resolution.
Trace bilateral pleural fluid. Slight prominence of the pulmonary vascular markings. No pneumothorax. The cardiac silhouette is enlarged. Chronic degenerative changes of the spine.#Acute hypokalemia
Rt perihilar infiltrate, location concern for PNA
Will start of IV Azithromycin. Will need follow up CXR post dc
K3.3-->3.1-->3.4
-KCl 40 mEq p.o. given in the ER, along with IV K rider 20 mEq
-will start standing dose of K
CXR with concern for PNA. Not started on abx, no fever, WBC appears at baseline.
will order repeat CXR, with excellent diuresis, to see if any change
#CKD stage Humza
Creat 2.9, prior baseline appears 1.4-1.8 ()
-Follow BMP
#Acute on chronic leukocytosis
WBC 13.8-->11.6 appears less than baseline baseline appears 16-20 since 2015
-Follow CBC
#Chronic anemia normocytic
Hgb 10.9 prior 12.8 03/24/2020
-Fe 17% sat
Ferritin 33.4
will give 1 dose of IV Ferrlecit
#HTN�benign
-Hold HCTZ 25 mg daily, amlodipine 10 mg daily decrease aspirin to 81 mg daily
#HLD
-Check lipid profile
-Continue atorvastatin 10 mg at bedtime
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
-Check TSH with free T4 reflex
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
#Gout
-Continue allopurinol 300 mg daily
#Prostate cancer status post radical prostatectomy 1994
Other PMH:
Rib fracture/pleural effusion/chest tube
colon polyps with tubular adenoma
DVT prophylaxis
now on Eliquis
DNR per patient
Anticipated Discharge: 24 - 48 hours
Subjective/Interval History
-
Date of Service: May 26, 2024
Pt overall feels better, less sob, decreased edema
Objective Data
-
Labs:
Laboratory Results
05/26/24
05:38
WBC 11.6 H
Hgb 9.8 L
Hct 29.9 L
Plt Count 203
Sodium 143
Potassium 3.4 L
Chloride 106
Carbon Dioxide 30
BUN 48 H
Creatinine 2.7 H
Glucose 93
Calcium 9.6
Total Bilirubin 0.7
AST 33
ALT 24
Alkaline Phosphatase 59
Vital Signs:
Vital Signs
Temp Pulse Resp BP Pulse Ox
98.4 F 75 20 127/59 96
05/26/24 11:54 05/26/24 11:54 05/26/24 11:54 05/26/24 11:54 05/26/24 11:54
I&O
05/25/24 05/26/24 05/27/24
06:59 06:59 06:59
Intake Total 240 / 240 1080 / 1080 540 / 540
Output Total 1275 / 1275 1795 / 1795 450 / 450
Balance -1035 / -1035 -715 / -715 90 / 90
Review of Systems
-
History Source: Patient and Coordinated Provider
Constitutional: Denies Fever
EENT: Reports No Symptoms Reported
Respiratory: Denies Cough or Trouble Breathing
Cardiac: Denies Chest Pain
Abdomen/GI: Reports No Symptoms
Physical Exam
-
General: Well Developed, Well Nourished and No Apparent Distress
HEENT: Normocephalic, Atraumatic and Moist Mucous Membranes
Respiratory: Rales (minimal bibasilar rales)
Cardiac: S1/S2 and Irregular Rhythm
GI: Soft, Nontender and Nondistended
Musculoskeletal: Negative Edema, Right Lower Extrem (resolved) or Edema, Left Lower Extrem (resolved)
[2024-05-26] MEDS: KCL 20 MEQ PO (15:25)
[2024-05-26] MEDS: FERRLECIT 110 MG IV (15:25)
[2024-05-26 15:58] VITALS: BP 142/58
[2024-05-26] MEDS: ZITHROMAX INFUSION 250 IV (17:21)
[2024-05-26 19:20] VITALS: BP 123/62
[2024-05-26] MEDS: LIPITOR 10 MG PO (21:30)
[2024-05-26 23:41] VITALS: BP 121/62
[2024-05-27 03:39] VITALS: BP 126/60
[2024-05-27 06:00] VITALS: BMI 33.2
[2024-05-27 08:03] LABS: % Basophils 0.6 % (0-2); % Eosinophils 5.2 % (0-6); % Immature Granulocytes 0.8 % (0-0.5); % Lymphocytes 15.1 % (20.5-51.1); % Monocytes 7.7 % (1.7-9.3); % Neutrophils 70.6 % (42.2-75.2); Absolute Basophils 0.1 10^3/uL (0-0.2); Absolute Eosinophils 0.6 10^3/uL (0-0.7); Absolute Immature Granulocytes 0.1 10^3/uL (0-0.05); Absolute Lymphocytes 1.7 10^3/uL (1.2-3.4); Absolute Monocytes 0.8 10^3/uL (0.1-0.6); Absolute Neutrophils 7.7 10^3/uL (1.4-6.5); Hematocrit 31.7 % (39.0-52.0); Hemoglobin 10.1 g/dL (13.0-18.0); Mean Corp Hgb Conc. 31.9 g/dL (33.0-37.0); Mean Corpuscular Hgb 29.9 pg (27.0-31.0); Mean Corpuscular Volume 93.8 fL (80.0-94.0); Mean Platelet Volume 11.4 fL (7.4-10.4); Nucleated Red Blood Cells % 0 % (-); Platelet Count 204 10^3/uL (130-400); Red Blood Cell Count 3.38 10^6/uL (4.70-6.10); Red Cell Dist. Width 14.8 % (11.5-14.5)
[2024-05-27 08:36] LABS: ALT (SGPT) 25 U/L (0-50); AST (SGOT) 29 U/L (17-59); Albumin 3.7 g/dl (3.5-5.0); Alkaline Phosphatase 61 U/L (38-126); Blood Urea Nitrogen 40 mg/dl (9-20); Calcium 9.6 mg/dl (8.4-10.2); Carbon Dioxide 29 mmol/L (22-30); Chloride 104 mmol/L (98-107); Estimated Creatinine Clearance 25 ml/min; Glucose 98 mg/dl (70-99); Potassium 3.7 mmol/L (3.5-5.1); Sodium 143 mmol/L (135-145); Total Bilirubin 0.8 mg/dl (0.2-1.3); Total Protein 5.7 g/dl (6.3-8.2); eGFR 26.98
[2024-05-27] MEDS: ELIQUIS 2.5 MG PO (08:55)
[2024-05-27] MEDS: THERAGRAN 1 TABLET PO (08:55)
[2024-05-27] MEDS: ZYLOPRIM 100 MG PO (08:55)
[2024-05-27] MEDS: COREG 25 MG PO (08:56)
[2024-05-27] MEDS: LASIX 40 MG PO (08:56)
[2024-05-27] MEDS: KCL 20 MEQ PO (08:56)
--- NOTE | 2024-05-27 09:04 | W.PN.HOSP.TC ---
Today's Communication/Plan
-
Discharge today
Assessment / Plan
Assessment / Plan
Physical exam:
General: Well Developed, Well Nourished and No Apparent Distress
HEENT: Normocephalic, Atraumatic and Moist Mucous Membranes
Respiratory: Clear to Auscultation; Negative Wheezes, Rales or Rhonchi
Cardiac: Regular Rhythm and S1/S2
GI: Soft, Nontender and Nondistended
Musculoskeletal: No Clubbing, No Cyanosis and No Edema
Neuro: Awake, Alert and Oriented
Psych: Calm
A/P:
#New onset A-fib
Currently rate controlled with patient's carvedilol 25 mg p.o. twice daily
-Heparin drip transitioned to Eliquis
-2D echo Monday
-Consulted [facility], input appreciated--> cardiology cleared him for discharge today on 05/27.
03/31/2016: EF 55 to 60%, mild TR normal LVS LVSF
#Acute CHF likely diastolic
I/O, daily weight
BNP 4010
Lasix 20 mg IV to hold today's dose and start on oral Lasix tomorrow
-Start Lasix 40 mg po daily
Wt 97-->94-->92.7-->93.2 kg
EKG A-fib heart rate 78 bpm, QTc [address] abnormality lateral leads
CXR:Right perihilar airspace opacity most suspicious for pneumonia. Recommend radiographic follow-up to resolution.
Trace bilateral pleural fluid. Slight prominence of the pulmonary vascular markings. No pneumothorax. The cardiac silhouette is enlarged. Chronic degenerative changes of the spine.#Acute hypokalemia
Rt perihilar infiltrate, location concern for PNA
Will start of IV Azithromycin. Will need follow up CXR post dc
K3.3-->3.1-->3.4
-KCl 40 mEq p.o. given in the ER, along with IV K rider 20 mEq
-will start standing dose of K
CXR with concern for PNA. Not started on abx, no fever, WBC appears at baseline.
will order repeat CXR, with excellent diuresis, to see if any change
#CKD stage Humza
Creat 2.9, prior baseline appears 1.4-1.8 ()
-Follow BMP
#Acute on chronic leukocytosis
WBC 13.8-->11.6 appears less than baseline baseline appears 16-20 since 2015
-Follow CBC
#Chronic anemia normocytic
Hgb 10.9 prior 12.8 03/24/2020
-Fe 17% sat
Ferritin 33.4
will give 1 dose of IV Ferrlecit
#HTN�benign
-Hold HCTZ 25 mg daily, amlodipine 10 mg daily decrease aspirin to 81 mg daily
#HLD
-Check lipid profile
-Continue atorvastatin 10 mg at bedtime
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
-Check TSH with free T4 reflex
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
#Gout
-Continue allopurinol 300 mg daily
#Prostate cancer status post radical prostatectomy 1994
Other PMH:
Rib fracture/pleural effusion/chest tube
colon polyps with tubular adenoma
DVT prophylaxis
now on Eliquis
DNR per patient
Anticipated Discharge: Today
Subjective/Interval History
-
Date of Service: May 27, 2024
No chest pain or shortness of breath.
Objective Data
-
Labs:
Laboratory Results
05/27/24
06:51
WBC 11.0 H
Hgb 10.1 L
Hct 31.7 L
Plt Count 204
Sodium 143
Potassium 3.7
Chloride 104
Carbon Dioxide 29
BUN 40 H
Creatinine 2.3 H
Glucose 98
Calcium 9.6
Total Bilirubin 0.8
AST 29
ALT 25
Alkaline Phosphatase 61
Vital Signs:
Vital Signs
Temp Pulse Resp BP Pulse Ox
97.8 F 80 19 122/59 95
05/27/24 03:39 05/27/24 08:56 05/27/24 03:39 05/27/24 08:56 05/27/24 03:39
I&O
05/26/24 05/27/24 05/28/24
06:59 06:59 06:59
Intake Total 1080 / 1080 1740 / 1740
Output Total 1795 / 1795 1825 / 1825
Balance -715 / -715 -85 / -85
[2024-05-27 11:05] VITALS: BP 112/69
--- NOTE | 2024-05-27 13:31 | W.PN.CD ---
Addendum entered and electronically signed by Axel Thurman MD 05/27/24 17:16:
I saw and examined the patient.
The LEAD ASSEMBLER's note was reviewed and I agree with the note.
Comment: Good for home. We have arranged f/u.
Original Note:
Today's Communication / Plan
-
-CHF: continue lasix
-AFIB: continue Eliquis and coreg
-F/u in our office will be arranged for when patient is d/c'd
Impression / Plan
-
AFIB, new diagnosis, type and onset unknown:
-rate-controlled. Continue Coreg.
-[id number] score is 4 for age, HTN, CHF.
-Eliquis 2.5 mg PO BID initiated. Affordable for patient per CM.
Acute HFpEF:
-patient feels improved and has been walking around without difficulty. His LE edema is back to his baseline he tells me. Weight is not down very significantly, but he tells me he has been eating a lot.
-Echo 05/27/24: EF 50-55%. LA volume severely abnormal. Mild mitral regurgitation. Aortic sclerosis without stenosis. Mild tricuspid regurgitation. Pulmonary artery pressure of 35 mmHg. Overall stable from previous 2015.
-now on PO Lasix
-hypokalemia resolved
CKD:
-stable with diuresis
-monitor as OP
HTN:
-stable on current meds
Possible PNA:
-on abx per primary team
Physical Exam
Vital Signs/Labs
Vital Signs
Temp Pulse Resp BP Pulse Ox
97.8 F 80 19 122/59 95
05/27/24 03:39 05/27/24 08:56 05/27/24 03:39 05/27/24 08:56 05/27/24 03:39
05/26/24 05/27/24 05/28/24
06:59 06:59 06:59
Actual Weight 93.242 kg 93.128 kg
05/27/24 06:51
05/27/24 06:51
APTT 77.3 Sec (23.4-35.0) H 05/25/24 15:01
Triglycerides 92 mg/dl (10-149) 05/25/24 07:51
LDL Cholesterol, Calc 57 mg/dl 05/25/24 07:51
VLDL Cholesterol, Calc 18 mg/dl (0-30) 05/25/24 07:51
HDL Cholesterol 29 mg/dl 05/25/24 07:51
05/24/24
15:55
Bey-Y-Mrtqkbnkoki Pept 4010
LAB Results
05/24/24
15:55
Troponin I 0.015
Physical Exam
Constitutional: No acute distress
EENT: Anicteric
Cardiovascular: Rhythm/rate is irregular
Respiratory: Respiratory effort normal
Neuro/Psych: AO x 3
Data Reviewed
-
Date of Service: May 27, 2024
EKG: Other (AFIB, rate-controlled)
Labs: Labs Reviewed by me
[2024-05-27] MEDS: ZITHROMAX 500 MG PO (14:24)
--- NOTE | 2024-05-27 15:39 | W.DCSUMMARY ---
Discharge Summary
Discharge Data
Date of Admission: 05/24/24
Date of Discharge: 05/27/24
-
Pending Results: No
Hospital Course
Patient 84-year-old male with history of hypertension, dyslipidemia, prostate cancer, CKD, came into the hospital with shortness of breath and found to be in heart failure and new onset of A-fib. Patient also was found to have community-acquired
pneumonia. Patient was started on IV diuresis. Diuresis was switched to oral along with potassium supplement. He was also placed on anticoagulation and ultimately on oral Eliquis. Patient also was treated with IV antibiotic and it was switched
to oral upon discharge. Patient has remained symptomatically improved and normal oxygenation on room air. He is also afebrile and hemodynamically stable. Cardiology cleared him for discharge. He will be discharged in stable condition today.
Discharge duration: 35 minutes
Discharge Plan
-
Patient Disposition: Home (Routine Discharge)
Discharge Diagnosis/Procedures: Acute diastolic congestive heart failure. New onset of atrial fibrillation. Pneumonia. Chronic kidney disease stage IV.
Diet: Low Cholesterol, 2 Gram Sodium and Restrict fluids to 48 oz
Activity: As tolerated
Blood Work: Please PCP to order CBC, BMP within 1 week
Others Tests: Please PCP to order chest x-ray in 4 weeks for follow-up interval resolution of pneumonia.
Specialty Instructions: Weigh Daily- Call MD for wt gain/loss 3 lbs overnight/5 lbs in 1 week
Instructions: *PCP/Other Molded [employer] And [employer] Inspector Heart Failure Instructions
Referrals:
Nicanor Linton MD [Family Provider] - in less than 1 week
Dilcia Pierson CRNP [Specified Professional Personl] - 05/31/24 10:40 am
Prescriptions:
New
Eliquis 2.5 mg Tablet
2.5 mg PO BID 30 Days Qty: 60 0RF
furosemide 40 mg Tablet
40 mg PO DAILY 30 Days Qty: 30 0RF
azithromycin 250 mg Tablet
500 mg PO DAILY 3 Days Qty: 6 0RF
allopurinol 100 mg Tablet
100 mg PO DAILY 30 Days Qty: 30 0RF
potassium chloride 20 mEq Tablet,Er Particles/Crystals
20 meq PO DAILY 14 Days Qty: 14 0RF
Continued
carvedilol [Coreg] 25 MG tablet
25 mg PO BID
atorvastatin 10 MG tablet
10 mg PO HS
Centrum Silver 1 EACH tablet
1 ea PO DAILY
omega 0-gqh-rhd-fish oil [Fish Oil] 1 EACH capsule
1 ea PO BID
acetaminophen [Tylenol] 325 mg Tablet
650 mg PO Q6HPRN PRN (Reason: mild pain)
Discontinued
aspirin 325 MG tablet
325 mg PO DAILY
amlodipine [Norvasc] 10 MG tablet
10 mg PO DAILY
hydrochlorothiazide 25 MG tablet
25 mg PO DAILY
allopurinol 300 MG tablet
300 mg PO DAILY 0RF
Discharge Orders:
Discharge Patient (As Directed); Ordered 05/27/24
Ordered By: Mike Ross
Discharge Date and Time
Discharge Date/Time: 05/27/24 17:41
Print Language: MOHAWK
[2024-05-27 16:16] VITALS: BP 136/82
--- NOTE | 2024-05-28 08:17 | W.HF.CON ---
Heart Failure
- LV Function
Left ventricular function study result: LV Ejection fraction >/= 50%
Ejection Fraction Percentage: 50-55
- ARNI
Patient already on ARNI: No
Heart Failure ARNI Not Indicated: LV Ejection Fraction >/= 40%
- ACEI/ARB
Patient already on ACEI/ARB: No
Heart Failure ACEI/ARB Not Indicated: LV Ejection Fraction > 40%
- Beta Raj
Patient already on Evidence Based Beta Raj: Yes
- Mineralocorticord Receptor Antagonist
Patient already on MRA: No
Heart Failure MRA Not Indicated: LV Ejection Fraction > 40%
- SGLT-2 Inhibitor
Patient already on SGLT-2 Inhibitor: No
Heart Failure SGLT-2 Inhibitor Not Indicated: LV Ejection Fraction >40%
- Afib Anticoagulation
Patient already on Anticoagulation for Afib: Yes
- NYHA CHF Classification
NYHA CHF Classification Level: Class III - Symptoms w/ min exertion, interferes w/ nml daily activity
- ACC/AHA Stage
ACC/AHA Stage: Stage C: Symptomatic Heart Failure
== END 2024-05-27 17:41 | disposition home or self-care (01) | DRG 291 ==
LOC: 4 EAST ACU 20:07
PROVIDERS: Clinical Nurse Specialist Family Health; Emergency Medicine; Internal Medicine; Physician Assistant; ADMITTING PHYSICIAN Hospitalist; ATTENDING PHYSICIAN Hospitalist; CONSULT PHYSICIAN Internal Medicine Cardiovascular Disease; EMERGENCY PHYSICIAN Emergency Medicine; FAMILY PHYSICIAN Family Medicine
DX: I50.31 Acute diastolic (congestive) heart failure (principal); J18.9 Pneumonia, unspecified organism; I13.0 Hypertensive heart and chronic kidney disease with heart failure and stage 1 through stage 4 chronic kidney disease, or unspecified chronic kidney disease; N18.4 Chronic kidney disease, stage 4 (severe); N17.9 Acute kidney failure, unspecified; I48.91 Unspecified atrial fibrillation; M10.9 Gout, unspecified; E87.6 Hypokalemia; D63.1 Anemia in chronic kidney disease; E78.00 Pure hypercholesterolemia, unspecified; Z90.79 Acquired absence of other genital organ(s); Z85.46 Personal history of malignant neoplasm of prostate; H54.7 Unspecified visual loss; Z86.0101 Personal history of adenomatous and serrated colon polyps; M19.90 Unspecified osteoarthritis, unspecified site; Z96.652 Presence of left artificial knee joint; Z82.3 Family history of stroke; Z88.0 Allergy status to penicillin; Z88.2 Allergy status to sulfonamides; Z79.82 Long term (current) use of aspirin; Z79.899 Other long term (current) drug therapy; Z66 Do not resuscitate
CPT/HCPCS: 71046; 80053; 80061; 82607; 82728; 82746; 83540; 83550; 83880; 84443; 84484; 85025; 85730; 93005; 93306; 96365; 96366; 96375; 97162; 97166; 99285; J2916

== ENCOUNTER → 2024-06-04 10:58 | Outpatient (REF) | payer MEDICARE, BC, SELFPAY ==
[2024-06-04 12:43] LABS: % Basophils 0.7 % (0-2); % Eosinophils 4.7 % (0-6); % Immature Granulocytes 1.1 % (0-0.5); % Lymphocytes 12.2 % (20.5-51.1); % Monocytes 8.8 % (1.7-9.3); % Neutrophils 72.5 % (42.2-75.2); Absolute Basophils 0.1 10^3/uL (0-0.2); Absolute Eosinophils 0.5 10^3/uL (0-0.7); Absolute Immature Granulocytes 0.1 10^3/uL (0-0.05); Absolute Lymphocytes 1.3 10^3/uL (1.2-3.4); Absolute Monocytes 0.9 10^3/uL (0.1-0.6); Absolute Neutrophils 7.5 10^3/uL (1.4-6.5); Hematocrit 35.1 % (39.0-52.0); Mean Corp Hgb Conc. 31.3 g/dL (33.0-37.0); Mean Corpuscular Volume 95.6 fL (80.0-94.0); Mean Platelet Volume 11.7 fL (7.4-10.4); Nucleated Red Blood Cells % 0 % (-); Platelet Count 179 10^3/uL (130-400); Red Blood Cell Count 3.67 10^6/uL (4.70-6.10); Red Cell Dist. Width 15.2 % (11.5-14.5); White Blood Cell Count 10.4 10^3/uL (4.8-10.8)
[2024-06-04 12:57] LABS: Blood Urea Nitrogen 36 mg/dl (9-20); Carbon Dioxide 30 mmol/L (22-30); Chloride 103 mmol/L (98-107); Glucose 107 mg/dl (70-99); Potassium 4.3 mmol/L (3.5-5.1); Sodium 142 mmol/L (135-145); eGFR 24.41
== END ==
LOC: HWLAB 10:58
PROVIDERS: ATTENDING PHYSICIAN Family Medicine; REFERRING PHYSICIAN Nurse Practitioner Gerontology
DX: I48.19 Other persistent atrial fibrillation (principal); E87.6 Hypokalemia
CPT/HCPCS: 36415; 80048; 85025

== ENCOUNTER → 2024-06-12 11:08 | Outpatient (REF) | payer MEDICARE, BC, SELFPAY | LOC: HWRCS 11:08 | PROVIDERS: ATTENDING PHYSICIAN Nurse Practitioner Gerontology; FAMILY PHYSICIAN Family Medicine | DX: R06.09 Other forms of dyspnea (principal) | CPT/HCPCS: 78452; 93017; A9500; J2785 ==

== ENCOUNTER → 2024-06-18 09:07 | Outpatient (REF) | payer MEDICARE, BC, SELFPAY | LOC: HWRAD 09:07 | PROVIDERS: ATTENDING PHYSICIAN Family Medicine | DX: R22.1 Localized swelling, mass and lump, neck (principal); J18.9 Pneumonia, unspecified organism | CPT/HCPCS: 71046; 76536 ==

== ENCOUNTER 2024-07-12 15:15 | Inpatient (IN) | payer MEDICARE, BC, SELFPAY ==
[2024-07-12] VITALS (8 sets, daily range): BP systolic 122–144; BP diastolic 61–93; BMI 28.9
[2024-07-12 12:33] LABS: % Basophils 0.6 % (0-2); % Eosinophils 4.4 % (0-6); % Immature Granulocytes 0.6 % (0-0.5); % Lymphocytes 10.8 % (20.5-51.1); % Monocytes 7.8 % (1.7-9.3); % Neutrophils 75.8 % (42.2-75.2); Absolute Basophils 0.1 10^3/uL (0-0.2); Absolute Eosinophils 0.5 10^3/uL (0-0.7); Absolute Immature Granulocytes 0.1 10^3/uL (0-0.05); Absolute Lymphocytes 1.1 10^3/uL (1.2-3.4); Absolute Monocytes 0.8 10^3/uL (0.1-0.6); Absolute Neutrophils 7.9 10^3/uL (1.4-6.5); Hematocrit 32.6 % (39.0-52.0); Hemoglobin 10.5 g/dL (13.0-18.0); Mean Corp Hgb Conc. 32.2 g/dL (33.0-37.0); Mean Corpuscular Hgb 29.6 pg (27.0-31.0); Mean Corpuscular Volume 91.8 fL (80.0-94.0); Mean Platelet Volume 10.7 fL (7.4-10.4); Nucleated Red Blood Cells % 0 % (-); Platelet Count 169 10^3/uL (130-400); Red Blood Cell Count 3.55 10^6/uL (4.70-6.10); White Blood Cell Count 10.5 10^3/uL (4.8-10.8)
[2024-07-12 13:01] LABS: NT-proBNP 3010 pg/ml; Troponin I < 0.012 ng/ml
[2024-07-12 13:23] LABS: ALT (SGPT) 17 U/L (0-50); AST (SGOT) 26 U/L (17-59); Alkaline Phosphatase 60 U/L (38-126); Blood Urea Nitrogen 37 mg/dl (9-20); Carbon Dioxide 31 mmol/L (22-30); Chloride 106 mmol/L (98-107); Glucose 106 mg/dl (70-99); Potassium 4.4 mmol/L (3.5-5.1); Sodium 143 mmol/L (135-145); Total Bilirubin 0.7 mg/dl (0.2-1.3); Total Protein 6.1 g/dl (6.3-8.2); eGFR 25.63
--- NOTE | 2024-07-12 13:41 | ED.GENMED ---
History of Present Illness
General
Chief Complaint: Heart Rate Problem
Source: patient
Exam Limitations: none
Time Seen by Provider: 07/12/24 13:26
History of Present Illness
History of Present Illness:
See MDM
Past History
Past History
ED Past Medical History: Arrthythmia, HTN and Hypercholesterolemia
ED Past Surgical History: Cholecystectomy and Urological
Social History
Tobacco: Non-smoker
Alcohol: Occasional
Drug: None
Personal:
Living: with family
Employment: Retired
Family History
Family History: Hypertension
Phy Exam
Physical Exam
Physical Exam:
See MDM
Scores
Heart Failure Risk
Heart Failure Risk Score: Yes
History of Stroke or TIA: No
History of intubation for respiratory distress: No
Heart rate on ED arrival >/= 110: No
SaO2 <90% on arrival on room air: No
HR >/=110 during 3min walk test (or too ill to perform test): No
ECG has acute ischemic changes: No
Urea >/=12mmol/L (BUN 33.6mg/dL): Yes
Serum CO2>/=35mmol/L: No
Troponin I or T elevated to DC Level (0.4mg/dL): No
NT-proBNP >/=5,000ng/L (5,000pg/ml): No
HF Risk Score: 1
Admission Status: MEDIUM RISK 5.1% Consider observation or discharge to home with homecare & f/u visit to PCP/Special Warfare Operator, or SNF for treatment
Course
Orders/Labs/Results
Orders:
Orders
07/12/24 11:58
EKG with chest pain [ECG as needed] As Directed
ECG as needed for:: Rhythm Change
07/12/24 12:20
CXR2 [CR Chest - 2 Views ] Urgent
Comment:
Reason For Exam: lower extremity edema
07/12/24 12:25
Complete Blood Count/With Diff Urgent
Comprehensive Metabolic Panel Urgent
NT-proBNP Urgent
Troponin I Urgent
07/12/24 13:51
Consult Cardiology [CARDIOLOGY CONSULT] Urgent
Consulting Provider: New Montes De Oca
Was physician already notified: Yes
Abnormal Lab Results
07/12/24
12:25
RBC 3.55 L 10^6/uL
(4.70-6.10)
Hgb 10.5 L g/dL
(13.0-18.0)
Hct 32.6 L %
(39.0-52.0)
MCHC 32.2 L g/dL
(33.0-37.0)
RDW 16.0 H %
(11.5-14.5)
MPV 10.7 H fL
(7.4-10.4)
Abs Immat Gran (auto) 0.1 H 10^3/uL
(0-0.05)
Absolute Neuts (auto) 7.9 H 10^3/uL
(1.4-6.5)
Absolute Lymphs (auto) 1.1 L 10^3/uL
(1.2-3.4)
Absolute Monos (auto) 0.8 H 10^3/uL
(0.1-0.6)
Immature Gran % 0.6 H %
(0-0.5)
Neutrophils % 75.8 H %
(42.2-75.2)
Lymphocytes % 10.8 L %
(20.5-51.1)
Carbon Dioxide 31 H mmol/L
(22-30)
BUN 37 H mg/dl
(9-20)
Creatinine 2.4 H mg/dL
(0.7-1.3)
Glucose 106 H mg/dl
(70-99)
Total Protein 6.1 L g/dl
(6.3-8.2)
07/12/24 12:25
07/12/24 12:25
Vital Signs
Initial and Last Documented VS:
Initial Vital Signs
Temp Pulse Resp BP Pulse Ox
98.2 F 70 16 122/61 98
07/12/24 12:18 07/12/24 12:18 07/12/24 12:18 07/12/24 12:18 07/12/24 12:18
Last Documented Vital Signs
Temp Pulse Resp BP Pulse Ox
98.2 F 86 22 142/93 95
07/12/24 12:18 07/12/24 13:24 07/12/24 13:30 07/12/24 13:22 07/12/24 13:24
MDM/Problems Addressed
Differential Diagnosis Includes:
HPI and MDM Narrative:
84-year-old male presenting from the cardiology office for evaluation of CHF exacerbation. Patient was recently diagnosed with A-fib a month ago. Patient states he has been compliant with Eliquis since then. He was recently placed on 40 mg of
Lasix as well. He noticed a recent weight gain over the past month and complains of bilateral leg swelling. Patient denies chest pain or shortness of breath. He states he sometimes gets mildly short of breath with exertion. On my exam, patient
sitting in bed comfortably. He does have pitting edema to bilateral lower extremities. Patient states he believes he is supposed to get cardioverted as the thought is worsening congestive heart failure from uncontrolled A-fib. He is currently in
rate controlled A-fib. Will have cardiology weigh in to discuss admission for cardioversion or potentially bedside cardioversion and possibly discharge home
Physical exam
General: Well appearing and non-toxic
HEENT: protecting airway
Neck: appears supple
CV: No evidence of cyanosis. Regular rate, irregular rhythm
Resp: No accessory muscle use. Lungs clear
Abd: Non-distended
Extremities: +2 pitting edema bilateral lower extremities
Neuro: alert
Psych: Normal affect
Skin: Intact
Problems Addressed including Acute and Chronic Conditions affecting care:
1. Rate controlled A-fib
Acuity: subacute
Prognosis: stable
Details: Will have cardiology weigh in to decide whether or not it is worth cardioverting at bedside
2. Congestive heart failure
Acuity: acute
Prognosis: stable
Details: Potentially in the setting of A-fib.
Updates
1:50 PM Case discussed with cardiology who evaluated patient. Plan remains the same to admit for IV diuresis and cardioversion
Differential Diagnosis (but not limited to): A-fib, congestive heart failure, pleural effusion
Testing considered: D-dimer but he is anticoagulated
Drug therapy (if applicable): OTC meds, please see d/c instruction regarding Rx drugs
Amount and/or Complexity of Data Reviewed
Clinical info obtained from: Patient
External data reviewed: N/A
Labs I independently reviewed (but not limited to): Baseline elevated creatinine,, elevated BNP
Radiology: X-ray independently reviewed: Chest x-ray shows small right pleural effusion
Pulse Ox: not hypoxic
EKG independently reviewed: Rate controlled A-fib, normal axis, no STEMI
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
Critical Care: N/A
Risk of Complication:
Social Determinants of health: Good social support
Discussed with other providers: Special Warfare Operator, hospitalist
Escalation of Care includes Admit/Obs: Given the weight gain and A-fib, will admit for IV diuresis and cardioversion
Occasional wrong word or 'sound a like' substitutions may have occurred due to the inherent limitations of voice recognition software. Read the chart carefully and recognize, using context, where substitutions have occurred.
*Critical Care Note
Total Time (30-74mins, 75-104mins- exclusive of procedures): Not Applicable
ED Attending Note
-
Portions of this chart may have been created with voice recognition software.� Occasional wrong word or��sound alike� substitutions may have occurred due to the inherent limitations of voice recognition software.
Discharge Plan
Departure
Patient Disposition: Admit
Date of Disposition: 07/12/24
Time of Disposition: 13:54
Admit to: Telemetry
Presentation/result/management discussed w/ accepting MD/DO: Hospitalist
Discharge Problem:
A-fib, Acute exacerbation of CHF (congestive heart failure)
Prescriptions:
No Action
carvedilol [Coreg] 25 MG tablet
25 mg PO BID
atorvastatin 10 MG tablet
10 mg PO HS
Centrum Silver 1 EACH tablet
1 ea PO DAILY
omega [id number] oil [Fish Oil] 1 EACH capsule
1 ea PO BID
acetaminophen [Tylenol] 325 mg Tablet
650 mg PO Q6HPRN PRN (Reason: mild pain)
Eliquis 2.5 mg Tablet
2.5 mg PO BID 30 Days Qty: 60 0RF
furosemide 40 mg Tablet
40 mg PO DAILY 30 Days Qty: 30 0RF
azithromycin 250 mg Tablet
500 mg PO DAILY 3 Days Qty: 6 0RF
allopurinol 100 mg Tablet
100 mg PO DAILY 30 Days Qty: 30 0RF
potassium chloride 20 mEq Tablet,Er Particles/Crystals
20 meq PO DAILY 14 Days Qty: 14 0RF
Interventions
Interventions:
*Risk Screen - Suicide Last Done: 07/12/24 12:18
*General Assessment Last Done: 07/12/24 13:28
*Neglect/Abuse Screening Last Done: 07/12/24 12:18
*ED- Fall Risk Assessment Last Done: 07/12/24 13:28
*ED COVID-19 Vaccine History Last Done: 07/12/24 13:28
ED- Cardiac Assessment Last Done: 07/12/24 13:28
ED- Pulmonary Assessment Last Done: 07/12/24 13:28
Discharge Date and Time
Print Language: HUNGARIAN
--- NOTE | 2024-07-12 13:41 | W.PN.CD ---
Today's Communication / Plan
-
See scanned consultation. This is the summary.
Diuresis with furosemide 80 mg IV twice daily
Impression / Plan
-
I/P: 84M with HFpEF, persistent atrial fibrillation (on apixaban), HTN, HLD, CKD IV, and prostate cancer (radical prostatectomy, 1994) presents in acute HF.
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 Long
HFpEF, acute
-Volume overloaded on exam
-Diuresis with furosemide 80 mg IV twice daily, this requires intensive monitoring
-He would benefit from lower extremity compression
-No SGLT2 with current kidney function
-Trend daily weight, I/O, and BMP with diuresis
-Heart failure education
Persistent atrial fibrillation
-Currently rate controlled on carvedilol
-Oral Anticoagulation: Apixaban 2.5 mg twice daily (age 84, creatinine >1.5), at least 1 missed dose in the last 4 weeks
-[id number]: 4 (Heart failure, HTN, age 75 or more)
-BHAVESH guided cardioversion if he appears euvolemic on Monday
CKD Stage IV, follow with diuresis
Hypertension
-Stable with current medical therapy, follow with diuresis
Dyslipidemia, on atorvastatin
Anemia of chronic disease, stable
Neck mass, right - evaluation postponed in the outpatient setting
SUBJECTIVE:
See scanned consult.
DATA:
Transthoracic echocardiogram, 05/27/2024:
Normal left ventricular chamber size. Normal left ventricular systolic
function. Left ventricular ejection fraction is 50-55% by volumetric
assessment. Normal regional wall motion. Normal left ventricular wall
thickness. Diastolic function indeterminate due to atrial fibrillation.
Mitral valve opens normally. Thickened mitral valve leaflets. Mild mitral
regurgitation.
Indexed LA volume is severely abnormal (> 48 mL/m2).
Trileaflet aortic valve. Aortic sclerosis without stenosis. Aortic valve opens
normally. Trace aortic regurgitation is seen.
Tricuspid valve opens normally. Mild tricuspid regurgitation estimated
pulmonary artery pressure of 35 mmHg assuming a right atrial pressure of 3
mmHg.
Since echocardiogram March 2016, there is no significant change.
Physical Exam
Vital Signs/Labs
Vital Signs
Temp Pulse Resp BP Pulse Ox
98.2 F 86 22 142/93 95
07/12/24 12:18 07/12/24 13:24 07/12/24 13:30 07/12/24 13:22 07/12/24 13:24
07/11/24 07/12/24 07/13/24
06:59 06:59 06:59
Actual Weight 93.8 kg
07/12/24 12:25
07/12/24 12:25
07/12/24
12:25
Uhr-I-Atmvvhwphym Pept 3010
LAB Results
07/12/24
12:25
Troponin I < 0.012
Physical Exam
Constitutional: No acute distress and Comfortable
EENT: Anicteric and Moist mucous membranes
Cardiovascular: Rhythm/rate is irregular, Pedal edema present, S1S2 is normal and Murmur/rub/gallop absent
Respiratory: Respiratory effort normal and Lungs clear to auscul.
GI: Soft, Distention absent, Flat, Non tender and Normal bowel sounds
Neuro/Psych: AO x 3
Other: Skin (warm and dry +3 pitting B/L LE edema)
Data Reviewed
-
Date of Service: July 12, 2024
Echo: Report Reviewed by me
Labs: Labs Reviewed by me
Old Records: Reviewed
[2024-07-12] MEDS: LASIX 80 MG IV (14:29)
--- NOTE | 2024-07-12 14:57 | HPS.HSE ---
Addendum entered and electronically signed by Dk Coffey MD 07/13/24 09:05:
Seen and examined on 07/12/2024 at 5:30 PM
84 male history of hypertension, hyperlipidemia, CKD stage IV, prostate CA, gout presents from cardiology office after being found to be in atrial fibrillation and bilateral lower extremity swelling concerning for heart failure exacerbation.
NAD
Scleral Anicteric
MMM
Right ankle of the jaw movable mass, smaller then a golf ball
No JVD
CTABL
RRR, S1/S2
Soft, NT, ND, BS+
Bilateral lower extremity swelling
Warm, Dry
AAOx3
Calm
Acute on chronic HFpEF
IV diuresis
I's and O's
Daily weights
2 g sodium diet
Keep K greater than 4 magnesium greater than 2
Compression stockings
Elevate legs greater than heart
Follow renal function
Unable to provide/SGLT2 inhibitor due to renal dysfunction
Persistent atrial fibrillation
Plan for BHAVESH cardioversion on 07/15
Cardiology following
Monitor on telemetry
Continue Coreg and apixaban
Stage IV CKD
Monitor renal function
Monitor urinary output
Avoid nephrotoxins as tolerated
Hyperlipidemia
Continue statin
Gout
Continue allopurinol, renally dose
Lipoma neck, angle of jaw-right, suspected
Outpatient ENT follow-up, was supposed to have a resection on Monday
Original Note:
Family Physician
-
Family Physician: Nicanor Linton
Chief Complaint
-
Increased bilateral lower extremity edema and weight up-to 5-7 lbs; worsened shortness of breath with exertion
History of Present Illness
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 He was found to be volume overloaded and in atrial fibrillation. Sent to the hospital for intravenous diuresis followed by cardioversion. The patient
feels fine except for the weight gain and increased edema. Progressed shortness of breath on exertion (which is his baseline). AFib was recently diagnosed during his previous admission, and has been rate controlled with carvedilol and he is on
apixaban (at least 1 missed dose in the past couple of weeks due to a planned neck mass excision which has now been postponed). He has been compliant with furosemide 40 mg orally at home. Not on an SGLT2 due to the borderline creatine clearance. Has
not been a great candidate for cardiac catheterization due to his known baseline CKD IV.
Medical History
Past Medical History
Past Medical History: Reports Other
Additional Past Medical History:
Hypertension
Hyperlipidemia
Pleural effusion
Colon polyps with tubular adenoma
Chronic kidney disease, stage IV
Prostate cancer status post prostatectomy 1994
Osteorthritis
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
Gout
Chronic leukocytosis
Past Surgical History: Reports Other
Additional Past Surgical History:
rib fracture/pleural effusion/chest tube
prostate cancer status post prostatectomy 1994
Left knee replacement
Social History
Tobacco: Non-smoker
Alcohol: Occasional
Drug: None
Personal:
Living: With Family ()
Employment: Retired
Family History
Family History: Other (Mother CVA age 83 Father CVA age 66)
Allergies / Home Medications
Allergies reflects when Allergies were last updated in [facility].
Home Medications with original date entered in [facility]
Allergy/Medication List:
Allergies
Allergy/AdvReac Type Severity Reaction Status Date / Time
Penicillins Allergy Rash,fever Verified 07/12/24 12:20
Sulfa (Sulfonamide Allergy Rash,fever Verified 07/12/24 12:20
Antibiotics)
[Sulfa (Sulfonamides)]
Home Medications
atorvastatin 10 mg tablet 10 mg PO HS High Cholesterol 04/07/15
carvedilol 25 mg tablet (Coreg) 25 mg PO BID Heart Disease/Condition 04/07/15
apixaban 2.5 mg tablet (Eliquis) 2.5 mg PO BID 30 days #60 tabs 05/27/24
furosemide 40 mg tablet 40 mg PO DAILY 30 days #30 tabs 05/27/24
allopurinol 300 mg tablet 300 mg PO DAILY 07/12/24
amlodipine 10 mg tablet 10 mg PO DAILY 07/12/24
Review of Systems
-
History Source: Patient, Physician and Other (Outpatient records)
Constitutional: Reports Fatigue
EENT: Reports No Symptoms
Respiratory: Reports Trouble Breathing
Cardiac: Reports No Symptoms
Abdomen/GI: Reports No Symptoms
: Reports No Symptoms
Musculoskeletal: Reports Edema
Skin: Reports No Symptoms
Neurological: Reports No Symptoms
Endocrine: Reports No Symptoms
Hematologic/Lymphatic: Reports No Symptoms
Psych: Reports No Symptoms
Physical Exam
Vital Signs
Vital Signs
Temp Pulse Resp BP Pulse Ox
98.2 F 86 22 142/93 95
07/12/24 12:18 07/12/24 13:24 07/12/24 13:30 07/12/24 13:22 07/12/24 13:24
Physical Exam
General: No Apparent Distress and Comfortable
HEENT: NormoCephalic, Anicteric, Moist mucous membranes, Atraumatic, No Ptosis and Other (2.5 x 2.5 cm round, mobile, non-tender, hard mass without surrounding skin changes)
Respiratory: Clear and Non Labored Respirations
Cardiac: S1/S2, Irregular Rhythm and Tachycardia
GI: Soft, Non Tender and Non Distended
Genito-urinary: No costovertebral tender
Musculoskeletal: No Clubbing, No Cyanosis, Edema, Left Lower Extremity (2+) and Edema, Right Lower Extremity (2+)
Skin: Warm, Dry and IV/Catheter Site
Neuro: Awake, Alert, Oriented, No Motor Deficits and No Sensory Deficits
Hematologic/Lymphatic: No Lymphadenopathy
Psych: Calm and Intact Judgment/Insight
Laboratory Results
-
07/12/24 12:25
07/12/24 12:25
Laboratory Results
Total Bilirubin 0.7 mg/dl (0.2-1.3) 07/12/24 12:25
AST 26 U/L (17-59) 07/12/24 12:25
ALT 17 U/L (0-50) 07/12/24 12:25
Alkaline Phosphatase 60 U/L (38-126) 07/12/24 12:25
Troponin I < 0.012 ng/ml 07/12/24 12:25
Impression/Plan
-
Acute on chronic heart failure with preserved ejection fraction
- IV furosemide 40 mg BID.
- I&Os, daily weights, 2 gram sodium diet.
- Compression therapy, PT-OT-CM consult.
- Cardiology following.
- Follow BMP and Mg.
Persistent atrial fibrillation
- Asymptomatic and hemodynamically stable.
- Continue carvedilol and apixaban.
- Plan for BHAVESH-guided cardioversion possibly on 07-15-24 if sufficiently diuresed.
- Cardiology following.
- Admit to IVU.
Stage IV chronic kidney disease
- Follow closely with intensified IV diuresis.
- Does not see a ordnance officer outpatient; needs appointment.
Anemia of renal disease
- Check iron studies.
- IV iron if necessary.
Primary hypertension
- Continue carvedilol and diuresis.
Suspected sleep apnea
- Endorses sleeping difficulty, which could just be orthopnea.
- However, is often comorbid with AFib and HFpEF.
- Nocturnal O2 assessment.
Hyperlipidemia
- Continue statin.
Gout
- Continue allopurinol.
Suspected lipoma
- Planned resection postponed due to the current admission.
History of colon polyp with tubular adenoma
History of prostate cancer
Status-post proctectomy in 1994
- Asymptomatic and stable.
Thromboprophylaxis
- Apixaban.
Code status
- Full.
- Medical POA: Annemarie (daughter).
--- NOTE | 2024-07-12 16:59 | PTCARENOTE ---
Pt received as admit from ED. AAOx3. Able to ambulate independently in room. A.fib on tele, HRs 80s-120s. SpO2 95% on room air. +2 bilateral LE edema present. Pulses palpable. IV lasix 80mg received in ED prior to transfer. Pt resting in bed, call
dueñas in reach. Assessment documented.
[2024-07-12 18:02] LABS: Iron 56 ug/dl (49-181)
[2024-07-12 18:11] LABS: Percent Saturation 16 % (20-50); Total Iron Binding Capacity 333 ug/dl (261-462)
[2024-07-12 18:40] LABS: TSH 4.05 uIU/ml (0.47-4.68)
[2024-07-12 18:44] LABS: Ferritin 35.3 ng/ml (17.9-464.0)
[2024-07-12] MEDS: COREG 25 MG PO (20:10)
[2024-07-12] MEDS: ELIQUIS 2.5 MG PO (20:10)
[2024-07-12] MEDS: LIPITOR 10 MG PO (21:50)
[2024-07-13] VITALS (12 sets, daily range): BP systolic 114–141; BP diastolic 58–80; PULSE 90–95; BMI 28.0
[2024-07-13 04:30] LABS: Mean Corp Hgb Conc. 32.3 g/dL (33.0-37.0); Mean Corpuscular Hgb 29.2 pg (27.0-31.0); Mean Corpuscular Volume 90.6 fL (80.0-94.0); Mean Platelet Volume 11.3 fL (7.4-10.4); Platelet Count 160 10^3/uL (130-400); Red Blood Cell Count 3.42 10^6/uL (4.70-6.10); Red Cell Dist. Width 15.9 % (11.5-14.5); White Blood Cell Count 8.6 10^3/uL (4.8-10.8)
[2024-07-13 04:58] LABS: ALT (SGPT) 15 U/L (0-50); AST (SGOT) 22 U/L (17-59); Albumin 3.6 g/dl (3.5-5.0); Alkaline Phosphatase 64 U/L (38-126); Blood Urea Nitrogen 35 mg/dl (9-20); Calcium 9.8 mg/dl (8.4-10.2); Carbon Dioxide 31 mmol/L (22-30); Chloride 104 mmol/L (98-107); Estimated Creatinine Clearance 24 ml/min; Glucose 93 mg/dl (70-99); Magnesium 1.9 mg/dl (1.6-2.3); Potassium 3.7 mmol/L (3.5-5.1); Sodium 144 mmol/L (135-145); Total Bilirubin 0.9 mg/dl (0.2-1.3); Total Protein 5.7 g/dl (6.3-8.2); eGFR 25.63
[2024-07-13] MEDS: COREG 25 MG PO ×2 (08:07→19:22)
[2024-07-13] MEDS: ZYLOPRIM 50 MG PO (08:07)
[2024-07-13] MEDS: NORVASC 10 MG PO (08:07)
[2024-07-13] MEDS: ELIQUIS 2.5 MG PO ×2 (08:08→19:22)
[2024-07-13] MEDS: LASIX 40 MG IV ×2 (08:08→15:16)
--- NOTE | 2024-07-13 08:27 | W.PN.CD ---
Addendum entered and electronically signed by Axel Thurman MD 07/13/24 11:03:
I saw and examined the patient.
The SUPERVISOR TUNNEL HEADING's note was reviewed and I agree with the note except as above.
Comment: Change in plans. Pt has cancelled his neck mass biopsy (had skin cancer resected nearby and his skin surgeon had warned him...). We will continue with original plan of IV diuresis and BHAVESH/cardioversion on Monday.
Original Note:
Today's Communication / Plan
-
Continue diuresis. Trend kidney function.
He has a biopsy of his right neck mass on Monday with ENT, he would like to keep this outpatient appointment as it is to rule out cancer.
After BHAVESH guided cardioversion, he cannot have any missed doses of apixaban for 4 weeks. This can be done in the outpatient setting at his request.
Impression / Plan
-
I/P: 84M with HFpEF, persistent atrial fibrillation (on apixaban), HTN, HLD, CKD IV, and prostate cancer (radical prostatectomy, 1994) presents in acute HF.
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
HFpEF, acute
-LE edema significantly improved
-Diuresis with furosemide 40 mg IV twice daily, this requires intensive monitoring
-Continue lower extremity compression
-No SGLT2 with current kidney function
-Trend daily weight, I/O, and BMP with diuresis
-Heart failure education
Persistent atrial fibrillation
-Currently rate controlled on carvedilol
-Oral Anticoagulation: Apixaban 2.5 mg twice daily (age 84, creatinine >1.5), at least 1 missed dose in the last 4 weeks
-[id number]: 4 (Heart failure, HTN, age 75 or more)
-Eventual BHAVESH guided cardioversion
CKD Stage IV, follow with diuresis
Hypertension
-Stable with current medical therapy, follow with diuresis
Dyslipidemia, on atorvastatin
Anemia of chronic disease, stable
Neck mass, right - biopsy Monday with Dr. Bowen
SUBJECTIVE:
Legs feel less heavy and less challenges with ambulation. Feels 'so much better'
DATA:
Transthoracic echocardiogram, 05/27/2024:
Normal left ventricular chamber size. Normal left ventricular systolic
function. Left ventricular ejection fraction is 50-55% by volumetric
assessment. Normal regional wall motion. Normal left ventricular wall
thickness. Diastolic function indeterminate due to atrial fibrillation.
Mitral valve opens normally. Thickened mitral valve leaflets. Mild mitral
regurgitation.
Indexed LA volume is severely abnormal (> 48 mL/m2).
Trileaflet aortic valve. Aortic sclerosis without stenosis. Aortic valve opens
normally. Trace aortic regurgitation is seen.
Tricuspid valve opens normally. Mild tricuspid regurgitation estimated
pulmonary artery pressure of 35 mmHg assuming a right atrial pressure of 3
mmHg.
Since echocardiogram March 2016, there is no significant change.
Physical Exam
Vital Signs/Labs
Vital Signs
Temp Pulse Resp BP Pulse Ox
98 F 81 20 126/80 98
07/13/24 07:16 07/13/24 08:08 07/13/24 07:16 07/13/24 08:08 07/13/24 08:15
07/12/24 07/13/24 07/14/24
06:59 06:59 06:59
Actual Weight 91 kg
07/13/24 03:49
07/13/24 03:49
Magnesium 1.9 mg/dl (1.6-2.3) 07/13/24 03:49
TSH 4.05 uIU/ml (0.47-4.68) 07/12/24 12:25
07/12/24
12:25
Ldn-C-Fhhrpmokzkt Pept 3010
LAB Results
07/12/24
12:25
Troponin I < 0.012
Physical Exam
Constitutional: No acute distress and Comfortable
EENT: Anicteric and Moist mucous membranes
Cardiovascular: Rhythm & rate is regular and Pedal edema present (Significantly improved from yesterday)
Respiratory: Respiratory effort normal and Lungs clear to auscul.
GI: Soft, Distention absent, Flat and Non tender
Neuro/Psych: AO x 3
Other: Skin (Warm and dry)
Data Reviewed
-
Date of Service: July 13, 2024
--- NOTE | 2024-07-13 09:05 | W.PN.HOSP.TC ---
Today's Communication/Plan
-
IV diuresis
BHAVESH/DCCV on 07/15
Continue Eliquis and rate control
Assessment / Plan
Assessment / Plan
NAD, sitting in bedside chair eating breakfast
Scleral Anicteric
MMM
Right ankle of the jaw movable mass, smaller then a golf ball
No JVD
CTABL
IRR, S1/S2
Soft, NT, ND, BS+
Bilateral lower extremity swelling
Warm, Dry
AAOx3
Calm
Acute on chronic HFpEF
IV diuresis
I's and O's
Daily weights
2 g sodium diet
Keep K greater than 4 magnesium greater than 2
Compression stockings
Elevate legs greater than heart
Follow renal function
Unable to provide/SGLT2 inhibitor due to renal dysfunction
Persistent atrial fibrillation
Plan for BHAVESH cardioversion on 07/15
Cardiology following
Monitor on telemetry
Continue Coreg and apixaban
Stage IV CKD
Monitor renal function
Monitor urinary output
Avoid nephrotoxins as tolerated
Hyperlipidemia
Continue statin
Gout
Continue allopurinol, renally dose
Lipoma neck, angle of jaw-right, suspected
Outpatient ENT follow-up, was supposed to have a resection on Monday
Anticipated Discharge: > 48 hours
Subjective/Interval History
-
Date of Service: July 13, 2024
Seen and examined. No new complaints. No acute overnight events.
Objective Data
-
Labs:
Laboratory Results
07/13/24
03:49
WBC 8.6
Hgb 10.0 L
Hct 31.0 L
Plt Count 160
Sodium 144
Potassium 3.7
Chloride 104
Carbon Dioxide 31 H
BUN 35 H
Creatinine 2.4 H
Glucose 93
Calcium 9.8
Total Bilirubin 0.9
AST 22
ALT 15
Alkaline Phosphatase 64
Vital Signs:
Vital Signs
Temp Pulse Resp BP Pulse Ox
98 F 81 20 126/80 98
07/13/24 07:16 07/13/24 08:08 07/13/24 07:16 07/13/24 08:08 07/13/24 08:15
I&O
07/12/24 07/13/24 07/14/24
06:59 06:59 06:59
Intake Total 580 / 580
Output Total 2124 / 2124
Balance -1545 / -1545
--- NOTE | 2024-07-13 09:51 | PTCARENOTE ---
Assumed care of pt this AM. Pt AAOX3. A fib on ui developer. Patient denies pain/SOB. Pox: 97% RA. Call dueñas within reach. Plan of care ongoing.
--- NOTE | 2024-07-13 20:59 | PTCARENOTE ---
Pt rec'd in bed at change of shift awake,alert stating he was tired after not sleeping a lot last night. controlled afib on telemetry. beatriz wraps to b/l LE removed, +2 edema noted (pt states their half the size they were), + pedal pulses. call dueñas
within reach.
[2024-07-13] MEDS: LIPITOR 10 MG PO (22:22)
[2024-07-13] MEDS: TYLENOL 650 MG PO (22:37)
[2024-07-14] VITALS (9 sets, daily range): BP systolic 95–125; BP diastolic 54–71; BMI 27.8
[2024-07-14] MEDS: COREG 25 MG PO ×2 (09:04→21:08)
[2024-07-14] MEDS: ELIQUIS 2.5 MG PO ×2 (09:04→21:08)
[2024-07-14] MEDS: ZYLOPRIM 50 MG PO (09:04)
[2024-07-14] MEDS: NORVASC 10 MG PO (09:05)
--- NOTE | 2024-07-14 09:06 | W.PN.HOSP.TC ---
Today's Communication/Plan
-
Cardioversion on 07/15/24
Assessment / Plan
Assessment / Plan
NAD, sitting in bedside chair eating breakfast
Scleral Anicteric
MMM
Right ankle of the jaw movable mass, smaller then a golf ball
No JVD
CTABL
IRR, S1/S2
Soft, NT, ND, BS+
Bilpedal edema pitting
Warm, Dry
AAOx3
Calm
Acute on chronic HFpEF
IV diuresis
I's and O's
Daily weights
2 g sodium diet
Keep K greater than 4 magnesium greater than 2
Compression stockings
Elevate legs greater than heart
Follow renal function
Unable to provide/SGLT2 inhibitor due to renal dysfunction
Persistent atrial fibrillation
Plan for BHAVESH cardioversion on 07/15
Cardiology following
Monitor on telemetry
Continue Coreg and apixaban
Stage IV CKD
Monitor renal function
Monitor urinary output
Avoid nephrotoxins as tolerated
Hyperlipidemia
Continue statin
Gout
Continue allopurinol, renally dose
Lipoma neck, angle of jaw-right, suspected
Outpatient ENT follow-up, was supposed to have a resection on Monday
Anticipated Discharge: 24 - 48 hours
Subjective/Interval History
-
Date of Service: July 14, 2024
seen and examined
no new complaints
peeing and pooping okay
Objective Data
-
Vital Signs:
Vital Signs
Temp Pulse Resp BP Pulse Ox
97.8 F 71 20 114/63 93
07/14/24 07:59 07/14/24 05:00 07/14/24 07:59 07/14/24 05:00 07/14/24 07:59
I&O
0307/14/24 07/15/24
06:59 06:59 06:59
Intake Total 580 / 580
Output Total 2124
Balance -1544 / -1544 -1899 /
[2024-07-14 09:54] LABS: Hematocrit 32.3 % (39.0-52.0); Hemoglobin 10.4 g/dL (13.0-18.0); Mean Corp Hgb Conc. 32.2 g/dL (33.0-37.0); Mean Corpuscular Hgb 29.5 pg (27.0-31.0); Mean Corpuscular Volume 91.8 fL (80.0-94.0); Mean Platelet Volume 10.6 fL (7.4-10.4); Platelet Count 163 10^3/uL (130-400); Red Blood Cell Count 3.52 10^6/uL (4.70-6.10); Red Cell Dist. Width 16.1 % (11.5-14.5); White Blood Cell Count 8.3 10^3/uL (4.8-10.8)
[2024-07-14 10:08] LABS: Blood Urea Nitrogen 39 mg/dl (9-20); Calcium 10.2 mg/dl (8.4-10.2); Carbon Dioxide 30 mmol/L (22-30); Chloride 102 mmol/L (98-107); Estimated Creatinine Clearance 24 ml/min; Glucose 131 mg/dl (70-99); Potassium 3.7 mmol/L (3.5-5.1); Sodium 143 mmol/L (135-145); eGFR 25.63
[2024-07-14] MEDS: LASIX 40 MG IV ×2 (10:25→16:05)
--- NOTE | 2024-07-14 17:30 | W.PN.CD ---
Today's Communication / Plan
-
For BHAVESH/DCCV as planned by Dr. Long on 07/15/2024
Neck mass biopsy will need to be pushed back 4.5 weeks. No stopping Eliquis for 28 days after cardioversion, pt aware
Impression / Plan
-
Background: 84M with HFpEF, persistent atrial fibrillation (on apixaban), HTN, HLD, CKD IV, and prostate cancer (radical prostatectomy, 1994) presents in acute HF.
Outpatient internet marketing intern: Dr. Long
HFpEF, acute on chronic
- Admit weight 93.8 kg and now weight 90.4 kg (07/14/2024)
-LE edema significantly improved, essentially at baseline but still close to 2+
-Diuresis with furosemide 40 mg IV twice daily, this requires intensive monitoring
-Continue lower extremity compression
-No SGLT2 with current kidney function
-Trend daily weight, I/O, and BMP with diuresis
-Heart failure education
Persistent atrial fibrillation
-Currently rate controlled on carvedilol
-Oral Anticoagulation: Apixaban 2.5 mg twice daily (age 84, creatinine >1.5), at least 1 missed dose in the last 4 weeks
-[id number]: 4 (Heart failure, HTN, age 75 or more)
-BHAVESH guided cardioversion as planned by Dr. Long for 07/15/2024
-Pt aware that afib recurrence is high likelihood
CKD Stage IV, follow with diuresis
Hypertension, stable with current medical therapy, follow with diuresis
Dyslipidemia, on atorvastatin
Anemia of chronic disease, stable
Neck mass, right - biopsy Monday with Dr. Bowen. Skin cancer resected near mass raises risk of metastatic skin cancer and pt is aware!
SUBJECTIVE:
Feels even better
DATA:
Echo 05/27/2024: [id number]%, mild MR, AoV sclerosis, severe LAE, PASP 35 RA 3, stable from 03/2016
Physical Exam
Vital Signs/Labs
Vital Signs
Temp Pulse Resp BP Pulse Ox
97.8 F 72 20 116/64 92
07/14/24 16:00 07/14/24 17:00 07/14/24 16:00 07/14/24 16:05 07/14/24 12:33
07/13/24 07/14/24 07/15/24
06:59 06:59 06:59
Actual Weight 91 kg 90.4 kg
07/14/24 09:43
07/14/24 09:43
Magnesium 1.9 mg/dl (1.6-2.3) 07/13/24 03:49
TSH 4.05 uIU/ml (0.47-4.68) 07/12/24 12:25
07/12/24
12:25
Byd-W-Etyoymmugog Pept 3010
LAB Results
07/12/24
12:25
Troponin I < 0.012
Physical Exam
Constitutional: No acute distress
EENT: Anicteric
Cardiovascular: Rhythm/rate is irregular, Pedal edema present (1-2+ and pt reports this is essentially baseline) and S1S2 is normal
Respiratory: Respiratory effort normal and Lungs clear to auscul.
GI: Soft and Distention absent
Data Reviewed
-
Date of Service: July 14, 2024
--- NOTE | 2024-07-14 18:00 | PTCARENOTE ---
Discussed pending CV w/pt. Pt verbalized understanding. Will monitor.
[2024-07-14] MEDS: LIPITOR 10 MG PO (21:08)
[2024-07-15] VITALS (9 sets, daily range): BP systolic 11–129; BP diastolic 54–67; PULSE 81; BMI 27.4
--- NOTE | 2024-07-15 03:06 | PTCARENOTE ---
Received pt at change of shift. AAOx3. A-fib on the monitor. Denies chest pain or SOB. Able to ambulate self to bathroom. Pt resting in bed, call dueñas within reach.
[2024-07-15 05:07] LABS: Hematocrit 30.2 % (39.0-52.0); Hemoglobin 9.7 g/dL (13.0-18.0); Mean Corp Hgb Conc. 32.1 g/dL (33.0-37.0); Mean Corpuscular Hgb 29.1 pg (27.0-31.0); Mean Corpuscular Volume 90.7 fL (80.0-94.0); Mean Platelet Volume 11.6 fL (7.4-10.4); Platelet Count 157 10^3/uL (130-400); Red Blood Cell Count 3.33 10^6/uL (4.70-6.10); White Blood Cell Count 8.4 10^3/uL (4.8-10.8)
[2024-07-15 05:32] LABS: Blood Urea Nitrogen 42 mg/dl (9-20); Calcium 9.6 mg/dl (8.4-10.2); Carbon Dioxide 32 mmol/L (22-30); Chloride 102 mmol/L (98-107); Estimated Creatinine Clearance 25 ml/min; Glucose 93 mg/dl (70-99); Potassium 3.5 mmol/L (3.5-5.1); Sodium 143 mmol/L (135-145); eGFR 26.98
[2024-07-15] MEDS: ELIQUIS 2.5 MG PO ×2 (07:29→20:17)
[2024-07-15] MEDS: ZYLOPRIM 50 MG PO (07:29)
[2024-07-15] MEDS: COREG 25 MG PO ×2 (07:34→20:16)
[2024-07-15] MEDS: NORVASC 10 MG PO (07:34)
--- NOTE | 2024-07-15 08:01 | W.PN.CD ---
Today's Communication / Plan
-
continue diuresis
Plan for BHAVESH cardioversion
Patient was on lasix 40mg PO daily prior todaymit. will need higher dose and close monitoring of renakl function post discharge
Impression / Plan
-
Background: 84M with HFpEF, persistent atrial fibrillation (on apixaban), HTN, HLD, CKD IV, and prostate cancer (radical prostatectomy, 1994) presents in acute HF.
Outpatient new grad rn: Dr. Long
HFpEF, acute on chronic
- Admit weight 93.8 kg and now weight 90.4 kg (07/14/2024)
-LE edema significantly improved, essentially at baseline but still close to 2+
-Diuresis with furosemide 40 mg IV twice daily, this requires intensive monitoring
-Continue lower extremity compression
-No SGLT2 with current kidney function
-Trend daily weight, I/O, and BMP with diuresis
-eightis down 93.8kg to 89.1
Persistent atrial fibrillation
-Currently rate controlled on carvedilol
-Oral Anticoagulation: Apixaban 2.5 mg twice daily (age 84, creatinine >1.5), at least 1 missed dose in the last 4 weeks
-[id number]: 4 (Heart failure, HTN, age 75 or more)
-BHAVESH guided cardioversion 07/15/2024
-Pt aware that afib recurrence is high likelihood
CKD Stage IV, follow with diuresis
Hypertension, stable with current medical therapy, follow with diuresis
Dyslipidemia, on atorvastatin
Anemia of chronic disease, stable
Neck mass, right - biopsy Monday with Dr. Bowen. Skin cancer resected near mass raises risk of metastatic skin cancer and pt is aware!
SUBJECTIVE:
Feels even better
DATA:
Echo 05/27/2024: [id number]%, mild MR, AoV sclerosis, severe LAE, PASP 35 RA 3, stable from 03/2016
Physical Exam
Vital Signs/Labs
Vital Signs
Temp Pulse Resp BP Pulse Ox
97.7 F 68 18 108/59 96
07/15/24 04:23 07/15/24 06:00 07/15/24 04:23 07/15/24 04:24 07/15/24 04:24
07/14/24 07/15/24 07/16/24
06:59 06:59 06:59
Actual Weight 90.4 kg 89.1 kg
07/15/24 04:30
07/15/24 04:30
Magnesium 1.9 mg/dl (1.6-2.3) 07/13/24 03:49
TSH 4.05 uIU/ml (0.47-4.68) 07/12/24 12:25
07/12/24
12:25
Niq-F-Jfujjxjhmjp Pept 3010
LAB Results
07/12/24
12:25
Troponin I < 0.012
Physical Exam
Constitutional: No acute distress
Cardiovascular: Rhythm/rate is irregular
Respiratory: Wheeze Absent and Rhonchi Absent
GI: Soft and Non tender
Neuro/Psych: Alert, Oriented and AO x 3
Data Reviewed
-
Date of Service: July 15, 2024
Medical Decision Making: Reviewed Test Results
Medical Tests (PFT, Pathology etc): Report Reviewed by me
Labs: Labs Reviewed by me
[2024-07-15] MEDS: KCL ELIXIR 40 MEQ PO (09:53)
[2024-07-15] MEDS: LASIX 40 MG IV ×2 (09:54→16:56)
--- NOTE | 2024-07-15 10:41 | PTCARENOTE ---
Pt received this am in afib, rate in the 70's to 80's. Denies any pain or sob. Returned post BHAVESH/CV in afib, rate unchanged. No c/o offered.
--- NOTE | 2024-07-15 13:43 | CM ---
spoke to pt in room, he is prev indep, lives with his in a ranch home with 1 step to enter. he denies any dc planning needs or dme's. plan is for dc to home when medically stable.
--- NOTE | 2024-07-15 14:00 | W.PN.HOSP.TC ---
Addendum entered and electronically signed by Timur Coffey MD 07/15/24 17:41:
I saw and evaluated the patient. I reviewed the resident�s note and agree with findings and plan as documented in the resident�s note.
1. Acute on chronic diastolic congestive heart failure -currently on IV Lasix 40 mg twice daily, with downtrending appropriately. Creatinine remains stable. Continue 1 more night of diuresis and patient will be reevaluated in morning again
tomorrow
2. Persistent atrial fibrillation -patient on Coreg/Eliquis at this point. Cardioversion was unsuccessful in the morning today. Discussed with cardiology and will follow in the office for further management.
Original Note:
Today's Communication/Plan
-
* Failed BHAVESH-cardioversion in AM.
* Continue IV diuresis and rate control.
* Continue apixaban.
Assessment / Plan
Assessment / Plan
Assessment
Adolfo Brothers, 84-year-old male, was seen at his outpatient otolaryngology rep's clinic today on 07-12-24. He was found to be volume overloaded and in atrial fibrillation. Sent to the hospital for intravenous diuresis followed by cardioversion. The patient
feels fine except for the weight gain and increased edema. Progressed shortness of breath on exertion (which is his baseline). AFib was recently diagnosed during his previous admission, and has been rate controlled with carvedilol and he is on
apixaban (at least 1 missed dose in the past couple of weeks due to a planned neck mass excision which has now been postponed). He has been compliant with furosemide 40 mg orally at home. Not on an SGLT2 due to the borderline creatine clearance. Has
not been a great candidate for cardiac catheterization due to his known baseline CKD IV.
Impression and plan
Acute on chronic heart failure with preserved ejection fraction
- IV furosemide 40 mg BID.
- I&Os, daily weights, 2 gram sodium diet.
- Compression therapy, PT-OT-CM consult.
- Cardiology following.
- Follow BMP and Mg.
Persistent atrial fibrillation
- Asymptomatic and hemodynamically stable.
- Continue carvedilol and apixaban.
- BHAVESH-guided cardioversion failed on 07-15-24.
- Cardiology following.
Stage IV chronic kidney disease
- Follow closely with intensified IV diuresis.
- Does not see a sow manager outpatient; needs appointment.
Anemia of renal disease
- Check iron studies.
- IV iron while inpatient.
Primary hypertension
- Continue carvedilol and diuresis.
Suspected sleep apnea
- Endorses sleeping difficulty, which could just be orthopnea.
- However, is often comorbid with AFib and HFpEF.
- Nocturnal O2 assessment.
Hyperlipidemia
- Continue statin.
Gout
- Continue allopurinol.
Suspected lipoma
- Planned resection postponed due to the current admission.
History of colon polyp with tubular adenoma
History of prostate cancer
Status-post proctectomy in 1994
- Asymptomatic and stable.
Thromboprophylaxis
- Apixaban.
Code status
- Full.
- Medical POA: Annemarie (daughter).
Anticipated Discharge: 24 - 48 hours
Subjective/Interval History
-
Date of Service: July 15, 2024
Stable overnight.
Objective Data
-
Labs:
Laboratory Results
07/15/24
04:30
WBC 8.4
Hgb 9.7 L
Hct 30.2 L
Plt Count 157
Sodium 143
Potassium 3.5
Chloride 102
Carbon Dioxide 32 H
BUN 42 H
Creatinine 2.3 H
Glucose 93
Calcium 9.6
Vital Signs:
Vital Signs
Temp Pulse Resp BP Pulse Ox
97.7 F 73 18 111/54 95
07/15/24 11:00 07/15/24 11:46 07/15/24 11:00 07/15/24 11:46 07/15/24 11:46
I&O
07/14/24 07/15/24 07/16/24
06:59 06:59 06:59
Intake Total 960 / 960
Output Total 1900 / 1900 2300 / 2300
Balance -1900 / -1900 -1340 / -1340
Review of Systems
-
History Source: Patient and Coordinated Provider
Constitutional: Reports No Symptoms
EENT: Reports No Symptoms Reported
Respiratory: Reports No Symptoms
Cardiac: Reports No Symptoms
Abdomen/GI: Reports No Symptoms
Genitourinary: Reports No Symptoms
Musculoskeletal: Reports No Symptoms
Skin: Reports No Symptoms
Neuro: Reports No Symptoms
Endocrine: Reports No Symptoms
Hematologic / Lymphatic: Reports No Symptoms
Allergy / Immunology: Reports No Symptoms
Physical Exam
-
General: No Apparent Distress and Comfortable
HEENT: Normocephalic, Atraumatic, Moist Mucous Membranes, Anicteric and No Ptosis
Respiratory: Clear to Auscultation and Non Labored Respirations
Cardiac: Regular Rhythm and Irregular Rhythm
GI: Soft, Nontender, Nondistended and No Hepatosplenomegaly
Genito-urinary: No Costovertebral Tender
Musculoskeletal: No Clubbing, No Cyanosis, Edema, Right Lower Extrem (1+) and Edema, Left Lower Extrem (1+)
Skin: Warm, Dry and IV Access / Catheter Site
Neuro: Awake, Alert, Oriented, No Motor Deficits and Nonfocal/Grossly Intact
Hematologic / Lymphatic: No Lymphadenopathy
Psych: Calm and Intact Judgement/Insight
[2024-07-15] MEDS: FERRLECIT 110 MG IV (14:59)
[2024-07-15] MEDS: LASIX IV (17:28)
--- NOTE | 2024-07-15 18:08 | ITS.CL.CARDI ---
Director It - Cardioversion
Cardioversion
Procedure Report:
Date of Procedure: 07/15/24
Procedure: Cardioversion
Indication: Symptomatic atrial fibrillation
Performing Physician: Carola Jerez DO [facility]
Anticoagulation: Eliquis
Transesophageal echocardiogram: No left atrial appendage thrombus. Normal left ventricular systolic function with a EF estimated 55 to 60%. Please see full report for further details
Technique: The patient was brought to the holding area. Signed informed consent was obtained. A time out was called and performed. The patient was anesthetized by the anesthesia service. Anticoagulation status was reviewed and appropriate. R2 pads
were placed anteriorly and posteriorly. A transesophageal echocardiogram was performed demonstrating no left atrial appendage thrombus. A 200 J synchronized biphasic shock was unsuccessful. A second attempt with a 300 J synchronized biphasic shock
resulted in transient atrial asystole not requiring pharmacologic therapy before returning to atrial fibrillation in the 50s and 60s. Post procedure EKG and strips reviewed with the EP, Dr. Thurman. Twelve-lead EKG atrial fibrillation with a ventricle
rate [address]-T wave abnormality.
Conclusion: Unsuccessful cardioversion attempts at 200 J and 300 J complicated by transient atrial asystole. Patient remained in rate controlled atrial fibrillation. Consider holding AV amador blocking agents such as patient's carvedilol 25 mg twice
daily prior to future cardioversion attempts.
Recommendation: Routine post cardioversion care. Continue prison anticoagulation.
[2024-07-15] MEDS: LIPITOR 10 MG PO (20:17)
[2024-07-16 03:47] VITALS: BMI 27.3
[2024-07-16 03:50] VITALS: BP 121/62
[2024-07-16 04:42] LABS: Hematocrit 31.3 % (39.0-52.0); Hemoglobin 10.1 g/dL (13.0-18.0); Mean Corp Hgb Conc. 32.3 g/dL (33.0-37.0); Mean Corpuscular Hgb 29.4 pg (27.0-31.0); Mean Corpuscular Volume 91.3 fL (80.0-94.0); Mean Platelet Volume 11.4 fL (7.4-10.4); Platelet Count 157 10^3/uL (130-400); Red Blood Cell Count 3.43 10^6/uL (4.70-6.10); Red Cell Dist. Width 16.2 % (11.5-14.5); White Blood Cell Count 8.9 10^3/uL (4.8-10.8)
[2024-07-16 04:43] VITALS: BMI 27.3
[2024-07-16 04:54] LABS: Blood Urea Nitrogen 46 mg/dl (9-20); Calcium 9.8 mg/dl (8.4-10.2); Carbon Dioxide 32 mmol/L (22-30); Chloride 102 mmol/L (98-107); Estimated Creatinine Clearance 26 ml/min; Glucose 101 mg/dl (70-99); Magnesium 1.8 mg/dl (1.6-2.3); Potassium 3.6 mmol/L (3.5-5.1); Sodium 143 mmol/L (135-145); eGFR 28.46
[2024-07-16] MEDS: ZYLOPRIM 50 MG PO (07:43)
[2024-07-16] MEDS: ELIQUIS 2.5 MG PO (07:44)
[2024-07-16] MEDS: COREG 25 MG PO (07:44)
[2024-07-16] MEDS: NORVASC 10 MG PO (07:45)
[2024-07-16 07:46] VITALS: BP 121/69
[2024-07-16 08:00] VITALS: BMI 27.3
--- NOTE | 2024-07-16 08:29 | W.PN.CD ---
Today's Communication / Plan
-
IV diuresis this AM
Transition to PO lasix 80 mg daily tomorrow
We will arrange outpt follow up
Impression / Plan
-
Background: 84M with HFpEF, persistent atrial fibrillation (on apixaban), HTN, HLD, CKD IV, and prostate cancer (radical prostatectomy, 1994) presents in acute HF.
Outpatient communication technician: Dr. Long
HFpEF, acute on chronic
- Admit weight 93.8 kg and now weight 90.4 kg (07/14/2024)
-LE edema significantly improved, essentially at baseline but still close to 2+
-Diuresis with furosemide 40 mgthis AM transition to PO tomorrow
-Continue lower extremity compression
-Priced SGLT2i can be considered as an outpt
-Trend daily weight, I/O, and BMP with diuresis
-weight continues to come down, 194.9 lbs this AM
Persistent atrial fibrillation- will cont rate control strategy for now
-Currently rate controlled on carvedilol
-Oral Anticoagulation: Apixaban 2.5 mg twice daily (age 84, creatinine >1.5), at least 1 missed dose in the last 4 weeks
-[id number]: 4 (Heart failure, HTN, age 75 or more)
-BHAVESH guided cardioversion 07/15/2024 --> unsuccessful
-Pt aware that afib recurrence is high likelihood
CKD Stage IV, follow with diuresis
Hypertension, stable with current medical therapy, follow with diuresis
Dyslipidemia, on atorvastatin
Anemia of chronic disease, stable
Neck mass, right - biopsy Monday with Dr. Bowen. Skin cancer resected near mass raises risk of metastatic skin cancer and pt is aware!
SUBJECTIVE:
Feels great insistent on leaving
DATA:
Echo 05/27/2024: [id number]%, mild MR, AoV sclerosis, severe LAE, PASP 35 RA 3, stable from 03/2016
Physical Exam
Vital Signs/Labs
Vital Signs
Temp Pulse Resp BP Pulse Ox
97.9 F 74 16 121/62 98
07/16/24 07:50 07/16/24 04:00 07/16/24 03:47 07/16/24 03:50 07/16/24 08:00
07/15/24 07/16/24 07/17/24
06:59 06:59 06:59
Actual Weight 196 lb 6.91 oz 195 lb 5.273 oz
07/16/24 04:02
07/16/24 04:02
Magnesium 1.8 mg/dl (1.6-2.3) 07/16/24 04:02
TSH 4.05 uIU/ml (0.47-4.68) 07/12/24 12:25
07/12/24
12:25
Wth-O-Nxunxytoazl Pept 3010
Physical Exam
Constitutional: No acute distress
EENT: Anicteric
Cardiovascular: Rhythm/rate is irregular and Pedal edema present
Respiratory: Respiratory effort normal and Lungs clear to auscul.
GI: Soft
Neuro/Psych: AO x 3
Data Reviewed
-
Date of Service: July 16, 2024
Medical Decision Making: Reviewed Test Results
EKG: Tracing Personally Visualized and interpreted (af)
Echo: Report Reviewed by me
Labs: Labs Reviewed by me
--- NOTE | 2024-07-16 09:05 | W.PN.HOSP.TC ---
Today's Communication/Plan
-
* Transition to PO furosemide.
* Discharge today.
Assessment / Plan
Assessment / Plan
Assessment
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 He was found to be volume overloaded and in atrial fibrillation. Sent to the hospital for intravenous diuresis followed by cardioversion. The patient
feels fine except for the weight gain and increased edema. Progressed shortness of breath on exertion (which is his baseline). AFib was recently diagnosed during his previous admission, and has been rate controlled with carvedilol and he is on
apixaban (at least 1 missed dose in the past couple of weeks due to a planned neck mass excision which has now been postponed). He has been compliant with furosemide 40 mg orally at home. Not on an SGLT2 due to the borderline creatine clearance. Has
not been a great candidate for cardiac catheterization due to his known baseline CKD IV.
Impression and plan
Acute on chronic heart failure with preserved ejection fraction
- IV furosemide 40 mg BID; transition to PO 80 mg daily.
- I&Os, daily weights, 2 gram sodium diet.
- Compression therapy, PT-OT-CM consult.
- Cardiology following.
- Follow BMP and Mg.
Persistent atrial fibrillation
- Asymptomatic and hemodynamically stable.
- Continue carvedilol and apixaban.
- BHAVESH-guided cardioversion failed on 07-15-24.
- Cardiology following.
Stage IV chronic kidney disease
- Follow closely with intensified IV diuresis.
- Does not see a clay burner outpatient; needs appointment.
Anemia of renal disease
- Check iron studies.
- IV iron while inpatient.
Primary hypertension
- Continue carvedilol and diuresis.
Suspected sleep apnea
- Endorses sleeping difficulty, which could just be orthopnea.
- However, is often comorbid with AFib and HFpEF.
- Nocturnal O2 assessment.
Hyperlipidemia
- Continue statin.
Gout
- Continue allopurinol.
Suspected lipoma
- Planned resection postponed due to the current admission.
History of colon polyp with tubular adenoma
History of prostate cancer
Status-post proctectomy in 1994
- Asymptomatic and stable.
Thromboprophylaxis
- Apixaban.
Code status
- Full.
- Medical POA: Annemarie (daughter).
Anticipated Discharge: Today
Subjective/Interval History
-
Date of Service: July 16, 2024
Doing okay. Eager to go home.
Objective Data
-
Labs:
Laboratory Results
07/16/24
04:02
WBC 8.9
Hgb 10.1 L
Hct 31.3 L
Plt Count 157
Sodium 143
Potassium 3.6
Chloride 102
Carbon Dioxide 32 H
BUN 46 H
Creatinine 2.2 H
Glucose 101 H
Calcium 9.8
Vital Signs:
Vital Signs
Temp Pulse Resp BP Pulse Ox
97.9 F 74 16 121/62 98
07/16/24 07:50 07/16/24 04:00 07/16/24 03:47 07/16/24 03:50 07/16/24 08:00
I&O
07/15/24 07/16/24 07/17/24
06:59 06:59 06:59
Intake Total 960 / 960 760 / 760
Output Total 2300 / 2300 1600 / 1600
Balance -1340 / -1340 -840 / -840
Review of Systems
-
History Source: Patient and Coordinated Provider
Constitutional: Reports No Symptoms
EENT: Reports No Symptoms Reported
Respiratory: Reports No Symptoms
Cardiac: Reports No Symptoms
Abdomen/GI: Reports No Symptoms
Genitourinary: Reports No Symptoms
Musculoskeletal: Reports No Symptoms
Skin: Reports No Symptoms
Neuro: Reports No Symptoms
Endocrine: Reports No Symptoms
Hematologic / Lymphatic: Reports No Symptoms
Allergy / Immunology: Reports No Symptoms
Physical Exam
-
General: No Apparent Distress and Comfortable
HEENT: Normocephalic, Atraumatic, Moist Mucous Membranes, Anicteric and No Ptosis
Respiratory: Clear to Auscultation and Non Labored Respirations
Cardiac: Regular Rhythm and Irregular Rhythm
GI: Soft, Nontender, Nondistended and No Hepatosplenomegaly
Genito-urinary: No Costovertebral Tender
Musculoskeletal: No Clubbing, No Cyanosis, Edema, Right Lower Extrem (1+) and Edema, Left Lower Extrem (1+)
Skin: Warm, Dry and IV Access / Catheter Site
Neuro: Awake, Alert, Oriented, No Motor Deficits and Nonfocal/Grossly Intact
Hematologic / Lymphatic: No Lymphadenopathy
Psych: Calm and Intact Judgement/Insight
[2024-07-16] MEDS: LASIX 40 MG IV (09:09)
--- NOTE | 2024-07-16 10:54 | CM ---
Pricing on Farxiga 10mg through the patient's [facility], [id number], is $20 for a 30 day supply.
Jardiance 10mg is $35 for a 30 day supply.
--- NOTE | 2024-07-16 11:40 | PTCARENOTE ---
Pt received this am in Afib, rate in the 70's to 80's. Denies any pain or sob. OOB ad santos, gait steady. Pt discharged to home with a friend. Discharge instructions given and reviewed with good understanding and all questions answered.
--- NOTE | 2024-07-16 14:09 | W.PN.UPDATE ---
Update Note
Progress Note Update
I saw and evaluated the patient. I reviewed the resident�s note and agree with findings and plan as documented in the resident�s note.
1. Acute on chronic diastolic congestive heart failure -cardiology recommended patient can be discharged on oral Lasix 80 daily. Creatinine remains stable. Patient started on GDMT. Will follow-up with cardiology in office
2. Persistent atrial fibrillation -patient on Coreg/Eliquis at this point. Cardioversion was unsuccessful yesterday. Discussed with cardiology and will follow in the office for further management.
More than 30 minutes spent in discharge including
Final examination of the patient
Summarizing hospital stay
Instructions for continuing care to all relevant caregivers
Preparation of discharge records, prescriptions, and referral forms
Total time spent (in minutes): 38 mins
--- NOTE | 2024-07-16 14:13 | W.DCSUMMARY ---
Discharge Summary
Discharge Data
Date of Admission: 07/12/24
Date of Discharge: 07/16/24
-
Pending Results: No
Hospital Course
Primary discharge diagnoses
* Acute on chronic heart failure with preserved ejection fraction
* Persistent atrial fibrillation
Secondary discharge diagnoses
- Stage IV chronic kidney disease
- Anemia of renal disease
- Primary hypertension
- Suspected sleep apnea
- Hyperlipidemia
- Chronic gout
- Neck mass, suspected lipoma
Hospital course
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 He was sent to the hospital for intravenous diuresis followed by cardioversion. He failed
BHAVESH-guided cardioversion on 07-15-24. He was diuresed with IV furosemide 40 mg BID through his hospital stay, and went from 206.8 to 195.3 lbs. He had remarkable improvement in his bilateral lower extremity swelling, and he remained asymptomatic and
hemodynamically stable throughout the hospital course. Vitals and blood work remained stable as well. He will be discharged home with increased diuretic regimen with furosemide 80 mg once a day orally. Follow-up with primary and cardiology in under
1 week. Repeat BMP and Mg in 1 week.
Discharge Plan
-
Patient Disposition: Home (Routine Discharge)
Discharge Diagnosis/Procedures: permanent afib, HF exacerbation
Condition: Fair
Diet: Low Sodium
Activity: As tolerated
Driving Restrictions: As prior to admission
Bathing Restrictions: OK to Shower
Activity Restrictions/Additional Instructions:
Please follow up with Dr Roxana Sterling in office for assessment of sleep apnea.
Instructions: *CBC Heart Failure Instructions
Referrals:
Roxana Sterling MD [Active] -
Nicanor Linton MD [Non-Admitting Privileges] - in one week
Eduardo Long MD [Active] - in two to four weeks
Prescriptions:
New
furosemide 80 mg Tablet
80 mg PO DAILY Qty: 30 2RF
Continued
carvedilol [Coreg] 25 MG tablet
25 mg PO BID
atorvastatin 10 MG tablet
10 mg PO HS
Eliquis 2.5 mg Tablet
2.5 mg PO BID 30 Days Qty: 60 0RF
amlodipine 10 mg Tablet
10 mg PO DAILY
allopurinol 300 mg Tablet
300 mg PO DAILY
Discontinued
furosemide 40 mg Tablet
40 mg PO DAILY 30 Days Qty: 30 0RF
Discharge Orders:
Discharge Patient (As Directed); Ordered 07/16/24
Ordered By: Timur Coffey
Care Plan Goals
Care Plan Goals:
Problem: Readiness for enhanced knowledge related to diagnosis and treatment plan
Goal: Understand your diagnosis and treatment plan needs, including medications if applicable.
Instructions: Know your diagnosis, underlying causes and treatment plan options, including medications if applicable. Consult with your health care team to learn about your diagnosis and treatment plan, including medications if applicable.
Discharge Date and Time
Discharge Date/Time: 07/16/24 11:45
Print Language: SAMI
--- NOTE | 2024-07-17 10:45 | W.HF.CON ---
Heart Failure
- LV Function
Left ventricular function study result: LV Ejection fraction >/= 50%
Ejection Fraction Percentage: 55-60
- ARNI
Patient already on ARNI: No
Heart Failure ARNI Not Indicated: LV Ejection Fraction >/= 40%
- ACEI/ARB
Patient already on ACEI/ARB: No
Heart Failure ACEI/ARB Not Indicated: LV Ejection Fraction > 40%
- Beta Raj
Patient already on Evidence Based Beta Raj: Yes
- Mineralocorticord Receptor Antagonist
Patient already on MRA: No
Heart Failure MRA Not Indicated: LV Ejection Fraction > 40%
- SGLT-2 Inhibitor
Patient already on SGLT-2 Inhibitor: No
Heart Failure SGLT-2 Inhibitor Contraindication: Patient Refusal
- Afib Anticoagulation
Patient already on Anticoagulation for Afib: Yes
- NYHA CHF Classification
NYHA CHF Classification Level: Class III - Symptoms w/ min exertion, interferes w/ nml daily activity
- ACC/AHA Stage
ACC/AHA Stage: Stage C: Symptomatic Heart Failure
== END 2024-07-16 11:45 | disposition home or self-care (01) | DRG 291 ==
LOC: IVU 15:15
PROVIDERS: Emergency Medicine; Internal Medicine Cardiovascular Disease; Student in an Organized Health Care Education/Training Program; ADMITTING PHYSICIAN Hospitalist; ATTENDING PHYSICIAN Hospitalist; EMERGENCY PHYSICIAN Student in an Organized Health Care Education/Training Program
PROC: B24BZZ4 Ultrasonography of Heart with Aorta, Transesophageal (ICD-10-PCS; 2024-07-15)
PROC: 5A2204Z Restoration of Cardiac Rhythm, Single (ICD-10-PCS; 2024-07-15)
DX: I13.0 Hypertensive heart and chronic kidney disease with heart failure and stage 1 through stage 4 chronic kidney disease, or unspecified chronic kidney disease (principal); I50.33 Acute on chronic diastolic (congestive) heart failure; I48.21 Permanent atrial fibrillation; N18.4 Chronic kidney disease, stage 4 (severe); D17.9 Benign lipomatous neoplasm, unspecified; E78.00 Pure hypercholesterolemia, unspecified; M1A.9XX0 Chronic gout, unspecified, without tophus (tophi); D64.9 Anemia, unspecified; Z79.01 Long term (current) use of anticoagulants; I70.0 Atherosclerosis of aorta; Z79.899 Other long term (current) drug therapy; Z85.46 Personal history of malignant neoplasm of prostate
CPT/HCPCS: 71046; 80048; 80053; 82728; 83540; 83550; 83735; 83880; 84443; 84484; 85025; 85027; 92960; 93005; 93312; 93320; 93325; 94762; 96374; 97116; 97162; 97166; 99285; J2916

== ENCOUNTER → 2024-08-06 10:46 | Outpatient (REF) | payer MEDICARE, BC, SELFPAY ==
[2024-08-06 15:45] LABS: Blood Urea Nitrogen 41 mg/dl (9-20); Calcium 9.9 mg/dl (8.4-10.2); Carbon Dioxide 32 mmol/L (22-30); Chloride 102 mmol/L (98-107); Glucose 102 mg/dl (70-99); Potassium 3.6 mmol/L (3.5-5.1); Sodium 143 mmol/L (135-145); eGFR 24.41
== END ==
LOC: HWLAB 10:46
PROVIDERS: ATTENDING PHYSICIAN Nurse Practitioner; FAMILY PHYSICIAN Family Medicine
DX: I50.30 Unspecified diastolic (congestive) heart failure (principal)
CPT/HCPCS: 36415; 80048

== ENCOUNTER → 2025-04-16 11:23 | Outpatient (REF) | payer MEDICARE, BC, SELFPAY ==
[2025-04-16 15:46] LABS: Albumin 3.6 g/dl (3.5-5.0); Blood Urea Nitrogen 52 mg/dl (9-20); Calcium 9.4 mg/dl (8.4-10.2); Carbon Dioxide 35 mmol/L (22-30); Chloride 94 mmol/L (98-107); Glucose 141 mg/dl (70-99); Potassium 3.2 mmol/L (3.5-5.1); Sodium 138 mmol/L (135-145); eGFR 36.21
== END ==
LOC: HWLAB 11:23
PROVIDERS: ATTENDING PHYSICIAN Internal Medicine Cardiovascular Disease; FAMILY PHYSICIAN Family Medicine
DX: N18.4 Chronic kidney disease, stage 4 (severe) (principal)
CPT/HCPCS: 36415; 80069